=== PATIENT | male | born 1930 | race Caucasian/White ===

== ENCOUNTER 2019-06-22 04:58 | Inpatient (IN) ==
[2019-06-22] MEDS ORDERED: NS 1,000 ML IV ONE ×2 (05:06→06:18)
--- NOTE | 2019-06-22 05:10 | PROVIDER DOCUMENTATION ---
HPI-Neurological Disorder - General Stated Complaint: AMS Time Seen by Provider: 06/22/19 05:01 Source: EMS Unable to obtain history due to:: altered Allergies/Adverse Reactions: Patient Allergies Allergy/AdvReac Type Severity Reaction Status Date / Time No Known Allergies Allergy Verified 10/23/15 20:11 Home Medications: Home Medication List Medication Instructions Recorded Confirmed Last Taken Type Clonidine [Catapres] 0.1 mg PO HS PRN #30 tablet 10/24/15 12/30/15 Unknown Rx Losartan/Hydrochlorothiazide 1 each PO DAILY 12/30/15 12/30/15 12/29/15 History [Losartan-Hctz 100-25 mg Tab] - History of Present Illness-Neuro Nature of Presenting Problem: EMS reports patient last seen normal at 0200, found unconscious unresponsive on the floor of his room at 0400, smelling of vomit. There is an abrasion/hematoma right forehead. EMS report normal d-stick and vitals en route. EMS noted a right facial droop en route. Onset/Duration: reports: 1-3 hours ago (last seen normal 3 hours [employer]) Context: reports: found unresponsive by family, head injury, impaired speech, facial droop Approximate time patient was last seen normal?: 02:00 Character of Altered Mental Status: reports: decreased responsiveness Any recent trauma/injury?: reports: to head (fresh hematoma/abrasion right frontal region) Character of Deficits: reports: new weakness (generalized), impaired speech, decreased ability to stand, decreased ability to walk New weakness or altered sensation location:: reports: right facial Cognitive Baseline: alert, oriented x3 Gait Baseline: walks without assistance Associated Symptoms: reports: trouble walking, vomiting Similar Symptoms Previously?: No Recently seen or treated by another doctor?: No Review of Systems - Adult - REVIEW OF SYSTEMS - ADULT ROS:: unobtainable per condition Constitutional: reports: no symptoms reported Neurological: reports: see HPI All Other Systems: Reviewed and Negative Past History - Adult - PAST MEDICAL HISTORY-ADULT Review of Records: reports: Old Records Reviewed, Nursing Assessment Review, Medications Reviewed, Social history reviewed & non-contributory. Major Childhood Illnesses: reports: denies history Cardiovascular: reports: HTN Respiratory: reports: denies history Gastrointestinal: reports: denies history Obstetrical/Gynecological: reports: denies history Genitourinary: reports: denies history Musculoskeletal: reports: denies history Neurological: reports: denies history Endocrine/Immune: reports: denies history Other Conditions: reports: denies history - PRIOR SURGERIES/PROCEDURES Surgical/Procedure History: reports: reviewed, not pertinent - IMMUNIZATION STATUS Childhood Immunizations: UTD Flu Vaccine: NUTD - FAMILY HISTORY Family History: reviewed, not pertinent - SOCIAL HISTORY Smoking: quit greater than 1 year Substance Use: none/never Alcohol Use Frequency: never Living Situation: family Physical Exam- Neurological - Physical Exam-Neuro Initial Vital Signs Reviewed: Yes General Appearance: mild distress, lethargic, slow to respond Eye Exam: bilateral eye: normal inspection, PERRL, EOMI HENMT: normocephalic/atraumatic, moist mucous membranes, dental decay, other (right facial droop, breath smells like vomit. No pooling of secretions) Head Injury: contusions (right frontal), swelling, tenderness Neck: non-tender, full range of motion, supple, normal inspection Respiratory: no pleuratic chest pain, no respiratory distress, no accessory muscle use, rhonchi Cardiovascular: normal peripheral pulses, regular rate, rhythm, no edema, no gallop, no JVD, no murmur Abdominal Exam: normal bowel sounds, non tender, soft Lymphatic: no adenopathy Peripheral Pulses: radial (R): 2+, radial (L): 2+, dorsalis-pedis (R): 2+, dorsalis-pedis (L): 2+ Extremity: non-tender, no pedal edema, no calf tenderness, normal capillary refill. negative: normal range of motion, normal gait booky Exam: PERRL, abnormal speech (moans incomprehensably), facial asymmetry, facial droop (right), facial weakness Coordination/Gait: abnormal gait (not tested), ABN nose to finger (R), ABN nose to finger (L). negative: normal finger to nose, normal gait Motor/Sensory: no sensory deficit, negative Babinski's sign, weak motor strength RUE, weak motor strength RLE, other (weaker right upper than right lower extremity) Neurologic: facial droop, focal weakness, motor weakness Integumentary: normal color, normal turgor, warm/dry Psych/Mental Status: disoriented x 3, disheveled - Glascow Coma Scale Best Eye Response: (4) open spontaneously Best Verbal Response: (2) incomprehsible sounds Best Motor Response: (4) withdraws to pain Total Glascow Score: 10 Progress - PLAN OF CARE/RESULTS Progress/Plan/Lab Results: Vital Signs - 8 hr 06/22/19 04:49 Temperature 97.3 F L Pulse Rate 84 Respiratory Rate 20 Blood Pressure 152/089 O2 Sat by Pulse Oximetry 97 Laboratory Results - last 24 hr 06/22/19 05:16 Specimen Type ARTERIAL Sample Site L RADIAL pH 7.43 pCO2 32 L pO2 61 HCO3 23.0 Base Excess -2.2 Oxyhemoglobin 91.4 L ABG O2 Sat (Calculated) 19.1 ABG O2 Saturation 94.5 L ABG Carboxyhemoglobin 1.80 ABG Methemoglobin 1.5 Leroy Test YES A-a O2 Difference 49.0 Total Hemoglobin 14.9 Lactate 2.60 H Blood Gas Modality ROOM AIR FiO2 % 21.0 Orders Category Date Time Status Cardiac Monitoring DIRECTED Care 06/22/19 05:04 Active Finger Stick Blood Sugar (ED) DIRECTED Care 06/22/19 05:04 Active Bull Cath Insertion ORDERED Care 06/22/19 05:07 Active Oxygen Therapy- ED Nursing DIRECTED Care 06/22/19 05:04 Active CHEST-PORTABLE [RAD] Stat Exams 06/22/19 05:[address] HEAD/C-SPINE W/O CONTRAST [CT] Stat Exams 06/22/19 05:05 Taken ABG [RESP] Routine Lab 06/22/19 05:16 Completed CBC WITH ELECTRONIC DIFF [HEME] Stat Lab 06/22/19 05:04 Ordered COMPREHENSIVE METABOLIC PANEL [CHEM] Stat Lab 06/22/19 06:09 Ordered PRO B-NATRIURETIC PEPTIDE Stat Lab 06/22/19 06:09 Ordered PROTIME WITH INR [COAG] Stat Lab 06/22/19 06:09 Ordered PTT [COAG] Stat Lab 06/22/19 06:09 Ordered TROPONIN T Stat Lab 06/22/19 05:04 Ordered URINALYSIS W/POSS RFLX CULT [URINALYSIS] Stat Lab 06/22/19 06:09 Ordered URINE DRUG SCREEN PL Stat Lab 06/22/19 06:09 Ordered 0.9% Sodium Chloride Inj [Ns] 1,000 ml Med 06/22/19 05:06 Discontinued IV 999 mls/hr Aspirin Med 06/22/19 05:54 Discontinued 300 mg VT NOW ONE Aspirin Med 06/22/19 05:55 Discontinued 300 mg VT NOW ONE EKG [EKG] Stat Ther 06/22/19 05:04 Ordered - REASSESSMENT Reassessment #1 Time Reassessed: 06:08 Status: unchanged (Patient lethargic, but rousable.) Reassessment #2 Time Reassessed: 06:14 Status: unchanged (Family at bedside, informed of stroke MDs decision not to be aggressive d/t abnormal CT. Aware of grim prognosis without intervention. Only givne IVF bolus and ASA. Labs currently pending.) - CT/MRI 1 CT Study: Head Impression: Abnormal (Per REAL RAD, ACUTE ISCHEMIC EVENT INVOLVING ENTIRE LEFT MCA) 2 MRI Study: C-Spine Impression: Abnormal (Chronic changes including widening of C6-C7) - CONSULTS/PCP/HOSPITALIST Notification #1 *Consult/PCP/Hospitalist*: STROKE TEAM at paged at [phone] Time Discussed: 06:07 (Dr. Pang, STROKE MD) Reason/Comments: NO INTERVENTION, no need to transfer, with CT scan this abnormal Consult Disposition: other #2 Consult: Dr. 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 Attestation - Physician/ IBETH Attestation Patient care was provided by Advanced Practice Provider:: No The physician spent face to face time with patient:: Yes Advanced Practice Provider documentation review:: Supervising physician onsite and consulted in the evaluation and care of this patient. The physician did have a face to face encounter with the patient. - NIH Stroke Scale NIH Type: Initial Evaluation Level of Consciousness: 1-Drowsy, but arousable with minimal stimulation LOC Questions (ask month and age): 2-Both Incorrect LOC Commands (ask to open & close eyes;make a fist, let go): 2-Both Incorrect Best Gaze (horizontal eye movement): 0-Normal Visual (use finger movement, counting or visual threat): 0-No Visual Loss Facial Palsy (show teeth or raise eyebrows & close eyes tght: 2-Partial Paralysis Motor Function-left arm: 0-Normal Motor Function-right arm: 3-No Effort Against Laotto Motor Function-left le-Some Effort Against Laotto Motor Function-right le-No Effort Against Laotto Limb Ataxia([id number], or heel to vo): 0-No Ataxia Sensory(pin prick to face,arms,trunk,legs-compare side/side): 0-No Ataxia Best Language(name item/read sentence.Ex-Down to Earth): 2-Severe Aphasia Dysarthria(Pt read words or say words Ex.Mama,Tip-Top,Thanks: 2-Near Unintelligible Extinction and Inattention: 0-Normal NIH Total Score: 19 Modified Will Score Criteria: 5-severe disability Stroke tPA Guidelines - Inclusion Criteria for IV tPA 18 years old or older: Yes Ischemic stroke with measurable deficit: Yes Onset <3 hours ago *OR* 3-4.5 hours ago: Yes - Exclusion Criteria for IV tPA Evidence of intracranial hemorrhage on CT: No Presentation suggest SAH: No CT reveals defined area of hypodensity: No Evidence of AVM, neoplasm, aneurysm: No Seizure at stroke onset: No Active internal bleeding or acute trauma: No Platelet Count Less Than 100,000: No Heparin Within Last 48 HRS (PTT >Lab normal limits): No INR > 1.7 (warfarin use): No Use IIB/IIIA inhibitors within 24 hours: No Serious Head Trauma Within Last 3 Months: No Arterial Puncture Within Last 7 Days: No Lumbar Puncture Within Last 7 Days: No Repeated systolic Blood Pressure >185 or Diastolic >110: No - Additional Exclusion Criteria for IV tPA Currently on Coumadin: No Patient older than 80: Yes Prior stroke and diabetes: No Baseline NIHSS score > 25: No - Relative Contraindications to IV tPA CT reveals extensive area of infarct (>1/3 MCA territory): Yes Minor or rapidly improving stroke symptoms: No Major Surgery or Serious Trauma In Previous 14 Days: No AMI within 3 months: No Gastrointestinal or Urinary Tract hemorrhage in Past 21 Days: No Post - AMI pericarditis: No Blood Glucose Less Than 50 mg/dl or Greater Than 400 mg/dl: No - Consultation tPA risks/benefits explained to:: family Candidate for:: NOT A CANDIDATE (head trauma evidenced today. Abnormal CT. Per Dr. Pang, Stroke MD at )
[2019-06-22 05:39] LABS: BE -2.2 mmoll (-3.0-3.0); BLOOD TYPE ARTERIAL; METHB 1.5 % (0.0-1.5); O2(CT) 19.1 mL/dL (15.0-23.0); O2HB 91.4 % (95.0-99.0); PCO2(98.6) 32 mmHg (35-45); PO2(98.6) 61 mmHg (60-100); SAMPLE BLOOD; SAO2 94.5 % (95.0-100.0); THB 14.9 g/dL (11.5-17.4); pH(98.6) 7.43 (7.35-7.45)
[2019-06-22 05:41] LABS: ALLEN TEST YES; MODALITY ROOM AIR
[2019-06-22] MEDS ORDERED: ASPIRIN PR ONE ×2 (05:54→05:55)
[2019-06-22 06:17] LABS: URINE SOURCE CATH
[2019-06-22] MEDS ORDERED: ZOFRAN IV PRN (06:17)
[2019-06-22 06:19] LABS: BASO# 0.03 X1000 (0.0-0.2); BASO% 0.2 % (0.0-0.8); EOS# 0.02 X1000 (0.0-0.7); EOS% 0.1 % (0.0-10.0); HEMATOCRIT 41.8 % (42.0-52.0); HEMOGLOBIN 13.5 g/dL (14.0-18.0); IMM GRAN# 0.03 X1000 (0.0-0.04); IMM GRAN% 0.2 % (0.0-0.5); LYMPH# 1.65 X1000 (1.2-3.4); LYMPH% 10.5 % (20.5-51.1); MCHC 32.3 g/dL (33-37); MCV 92.9 FL (81-99); MONO# 0.92 X1000 (0.11-0.59); MONO% 5.9 % (1.7-9.3); MPV 11.2 FL (7.4-10.4); NEUT# 13.05 X1000 (1.4-6.5); NEUT% 83.1 % (42.2-75.2); PLT 181 X1000 (130-400); RDW 13.7 % (11.5-14.5)
[2019-06-22 06:23] LABS: BILIRUBIN URINE NEGATIVE (NEGATIVE); BLOOD URINE TRACE (NEGATIVE); COLOR YELLOW; GLUCOSE URINE NEGATIVE (NEGATIVE); KETONE URINE TRACE mg/dL (NEGATIVE); LEUKOCYTES URINE NEGATIVE (NEGATIVE); NITRITE URINE NEGATIVE (NEGATIVE); PH URINE 5.5; PROTEIN URINE 30 mg/dL (NEGATIVE); SP GRAVITY URINE 1.029; TURBIDITY URINE CLEAR (CLEAR); UROBILINOGEN URINE NORMAL (NORMAL)
[2019-06-22 06:24] LABS: UR EPITHELIAL CELLS <10 /HPF (<10); URINE BACTERIA NEGATIVE /HPF; URINE RBC <10 /HPF (<10); URINE WBC <10 /HPF (<10)
--- NOTE | 2019-06-22 06:27 | ED EKG INTERP ---
EKG Interpretation - EKG Time of EKG reading by physician:: 06:26 EKG Read and Signed by:: Jaleel Adames EKG Interpretation (*Must complete 3 of following elements*): Abnormal Rate: 79 Rhythm: NSR [place]: left QRS: PVC's, other (first degree av block) [place] Interval: prolonged ST Wave: non-specific ST changes Attestation - Physician/ IBETH Attestation Patient care was provided by Advanced Practice Provider:: No The physician spent face to face time with patient:: Yes Advanced Practice Provider documentation review:: Supervising physician onsite and consulted in the evaluation and care of this patient. The physician did have a face to face encounter with the patient.
[2019-06-22 06:35] LABS: UR AMPHETAMINES QUAL NONE DETECTED (NONE DETECT); UR BARBITUATES QUAL NONE DETECTED (NONE DETECT); UR BENZODIAZEPIN QUAL NONE DETECTED (NONE DETECT); UR CANNABINOIDS QUAL NONE DETECTED (NONE DETECT); UR COCAINE QUAL NONE DETECTED (NONE DETECT); UR METHADONE QUAL NONE DETECTED (NONE DETECT); UR METHAMPHETAMINE QUAL NONE DETECTED (NONE DETECT); UR OPIATES QUAL NONE DETECTED (NONE DETECT); UR OXYCODONE QUAL NONE DETECTED (NONE DETECT); UR PCP QUAL NONE DETECTED (NONE DETECT); UR PROPOXYPHENE QUAL NONE DETECTED (NONE DETECT); UR TCA QUAL NONE DETECTED (NONE DETECT)
[2019-06-22 06:42] LABS: ALBUMIN 4.3 g/dL (3.5-5.0); CALCIUM 9.9 mg/dL (8.8-10.2); CREATININE 1.5 mg/dL (0.7-1.2); POTASSIUM 4.3 mmol/L (3.5-5.1); TOTAL BILIRUBIN 0.5 mg/dL (0.20-1.00); TOTAL PROTEIN 7.1 g/dL (6.3-8.3)
[2019-06-22 07:29] LABS: INR 0.97; PROTIME 13.4 Seconds (11.0-16.0)
--- NOTE | 2019-06-22 07:51 | Diag Imaging Result Doc PS360 ---
EXAM: CHEST-PORTABLE INDICATION: ams, aspiration? TECHNIQUE: One view COMPARISON: 12/30/2015 FINDINGS: Inspiration is suboptimal. There is evidence of prior granulomatous disease, stable. The lungs are grossly clear. There is no discrete pleural fluid collection or pneumothorax. The cardiomediastinal silhouette and central vasculature are grossly unremarkable. IMPRESSION: Low lung volumes but no definite acute pathology by plain radiograph, otherwise. Electronically signed by Anuj Bueno 06/22/2019 7:48 AM
--- NOTE | 2019-06-22 09:07 | EKG Report ---
Test Performed on : 06/22/2019 05:48:43 AM Test Reason : STROKE Blood Pressure : / mmHG Vent. Rate : 079 BPM Atrial Rate : 079 BPM P-R Int : 238 ms QRS Dur : 108 ms QT Int : 398 ms P-R-T Axes : 027 -15 031 degrees QTc Int : 456 ms Sinus rhythm. with 1st degree AV block. with occasional premature ventricular complexes. Otherwise normal ECG When compared with ECG of 30-DEC-2015 06:24, premature ventricular complexes. are now present IA interval has increased ST no longer elevated in Inferior leads ST no longer elevated in Lateral leads Unconfirmed Result
--- NOTE | 2019-06-22 09:31 | Diag Imaging Result Doc PS360 ---
EXAM: CT HEAD/C-SPINE W/O CONTRAST INDICATION: stroke/fall TECHNIQUE: This exam was performed using automated exposure control, adjustment of mA or kV according to patient size, and/or use of iterative reconstruction technique. COMPARISON: None. FINDINGS: Head: The left MCA is mildly hyperdense there is subtle loss of olvera-white differentiation and mild sulcal effacement involving a large portion of the left MCA distribution including the left frontal lobe and left parietal lobe consistent with an a very recent acute infarct. There is also suggestion of mild periventricular white matter microangiopathy. There is no midline shift and no hydrocephalus. There is no discrete intracranial mass or intracranial hemorrhage. There is extensive paranasal sinus mucosal disease, most significant at the right frontal and right maxillary sinuses where there is hyperostosis indicating chronicity. Surrounding soft tissues are essentially unremarkable. Calvaria is intact. C-spine: There is multilevel degenerative disc disease and facet arthropathy with loss of disc space height and marginal osteophyte formation. There are bulky flowing ventral marginal osteophytes throughout the cervical spine suggesting diffuse idiopathic skeletal hypertrophy (DISH). There is widening of the C6-7 vertebral disc space anteriorly that is likely due to remote trauma. There is mild bony central canal narrowing and varying degrees of moderate foraminal narrowing related to the degenerative change. Otherwise, there there is severe atherosclerotic calcification at the left carotid bulb and milder calcification at the right carotid bulb. Surrounding soft tissues are essentially unremarkable, otherwise. The surrounding soft tissues are essentially unremarkable. IMPRESSION: 1.Large acute left MCA distribution infarct as detailed above. No evidence of acute traumatic injury involving the head. 2.Extensive chronic appearing changes as detailed above but no evidence of acute fracture or other definite acute C-spine injury. Electronically signed by Anuj Bueno 06/22/2019 9:29 AM
[2019-06-22] MEDS ORDERED: ZOSYN 3.375 GM in NS 50 ML IV SCH (09:45)
[2019-06-22] MEDS ORDERED: VANCOMYCIN IV PER PHARMACY MISC SCH (10:03)
[2019-06-22] MEDS: LABETALOL IV PRN (10:49)
[2019-06-22] MEDS: ZOSYN 3.375 GM in NS 50 ML IV SCH ×3 (10:49→22:19)
[2019-06-22] MEDS ORDERED: VANCOMYCIN 2,000 MG in NS 500 ML IV ONE (11:00)
--- NOTE | 2019-06-22 11:43 | HISTORY AND PHYSICAL ---
PRIMARY CARE PHYSICIAN: Is listed as none. CHIEF COMPLAINT: Was found on the floor around 4 a.m. this morning unresponsive by his son. The patient had vomited and a hematoma and abrasion to his right forehead. HISTORY OF PRESENTING ILLNESS: This is an 88-year-old male, who presents to [facility] ER via EMS after he was found unconscious and unresponsive on the floor in his bedroom around 4 a.m. this morning, had vomiting, and was noted to have an abrasion hematoma to his right forehead. Last seen normal around 2 a.m. this morning. He is noted to have a facial droop on the right in route per EMS. He is aphasic. Responds minimally to verbal stimuli. Can squeeze my hand with his left hand but is flaccid on the right. Per ER documentation, CT of the head showed an acute ischemic event involving the entire left MCA. Stroke team at [facility] was paged around 5:50 a.m., spoke with Dr. Smith who had a recommendation of no intervention, no need to transfer, with CT scan this abnormal, so he is being admitted to the intensive care unit at [facility]. Spoke with family about code status and at this time they wish for him to be a full code, and he will be admitted for further evaluation and treatment. PAST MEDICAL HISTORY: Hypertension, chronic kidney disease. PAST SURGICAL HISTORY: Appendectomy and a cholecystectomy. FAMILY HISTORY: Reviewed and noncontributory. SOCIAL HISTORY: He is a former smoker. Denies tobacco, alcohol, or illicit drug use. He currently lives with family. ALLERGIES: He has no known drug allergies. HOME MEDICATIONS: A current list will need to be obtained, reconciled, reviewed, and restarted as appropriate when appropriate, but he is noted to be n.p.o. at this time, but placed an order for nursing to update and confirm home medications. LABORATORY DATA: Showed a white blood cell count of 15.70, hemoglobin 13.5, hematocrit 41.8, platelets 181. PT and INR of 13.4 and 0.97. ABG with a pH of 7.43, pCO2 of 32, pO2 61, bicarbonate 23.0, and this was on room air. Sodium 137, potassium 4.3, chloride 102, CO2 22, BUN of 24, creatinine 1.5 which appears to be around his baseline, in 2016 he was at 1.4. Glucose 196. Troponin was negative at 0.010. ProBNP of 222. Urinalysis was negative. Urine drug screen showed none detected. Chest x-ray showed low lung volumes but no definite acute pathology by plain radiograph otherwise. EKG showed normal sinus rhythm with some PVCs and a first-degree AV block at 79. Per our [facility] read the CT of the head as an acute ischemic event involving the entire left MCA. MRI showed chronic changes including widening of the C6 and C7. REVIEW OF SYSTEMS: Unable to obtain from patient due to being aphasic and unable to participate in exam. PHYSICAL EXAMINATION: VITAL SIGNS: On arrival, he had a temperature of 97.3, pulse 84, respirations 20, blood pressure 152/89, saturating 97% on room air. We did place him some O2. He is saturating 95% at this time. GENERAL: This is an 88-year-old male, who is lying in the bed, unable to answer questions appropriately, does open his left eye to verbal stimuli. HEEMNT: The patient is noted to have an abrasion and hematoma above his right eyebrow. He has a right-sided facial droop. Oropharynx and nares are clear. Eyes: He can spontaneously open his left eye and gazes to the left, would not open his right eye independently. Pupils are equal, round, and reactive to light and accommodation. Extraocular movements are intact. NECK: Normal inspection. Normal range of motion. LUNGS: With rhonchi throughout lung [place], equal lung expansion and chest wall movement noted. HEART: Regular rate and rhythm. No murmurs, rubs, or gallops. ABDOMEN: Soft, nontender, nondistended. Bowel sounds are present x4 quadrants. MUSCULOSKELETAL: Unable to assess strength at this time as he is unable to participate. NEUROLOGICAL: He has a right-sided facial droop. Opens only his left eye and will gaze to the left. Was able to squeeze my hand with his left hand, none with his right. Is aphasic and unable to complete any of the other neurological exam at this time. ASSESSMENT: 1. Acute ischemic cerebrovascular accident. 2. Leukocytosis. 3. Possible aspiration pneumonia. 4. Hypertension, history of. 5. Chronic kidney disease, history of. PLAN: He was admitted to the intensive care unit at [facility], [facility], held n.p.o. Neurologic checks q.3 hours. Telemetry. Oxygen per protocol. Will place him on Zosyn 3.375 g IV q.6, vancomycin per Pharmacy protocol. Will check an echocardiogram and a carotid Doppler. Do a portable chest x-ray in the a.m. Will need to update and confirm home medications and recheck a CBC and BMP in the a.m. Will give him aspirin 300 mg per rectum daily. I did speak with the patient's daughter, who was at the bedside, about code status and at this time she and her 2 brothers have discussed this and want him to remain a full code at this time. Further orders after seen by attending. Dictated by DEBI Hatfield for Toby Butler MD cc: DEBI Hatfield MD Lloyd James, MD
[2019-06-22] MEDS ORDERED: TYLENOL PR PRN (11:48)
[2019-06-22] MEDS ORDERED: TYLENOL LIQUID PO PRN (11:52)
[2019-06-22] MEDS ORDERED: QUELICIN IV ONE (12:08)
[2019-06-22] MEDS ORDERED: AMIDATE IV ONE (12:08)
[2019-06-22] MEDS: VASOTEC IV SCH ×2 (12:28→23:12)
[2019-06-22] MEDS ORDERED: QUELICIN (DOSE) ONE (12:30)
[2019-06-22] MEDS ORDERED: AMIDATE ONE (12:30)
[2019-06-22] MEDS: DIPRIVAN 1% 1,000 MG/100 ML BOTTLE IV SCH ×4 (12:31→22:18)
[2019-06-22] MEDS ORDERED: ZEMURON ONE (12:34)
--- NOTE | 2019-06-22 12:49 | Diag Imaging Result Doc PS360 ---
EXAM: CHEST-1 VIEW INDICATION: ETT placement TECHNIQUE: One view COMPARISON: 06/22/2019 FINDINGS: The newly placed ET tube projects over the trachea and above the portillo at about the C4 level. There is also a newly placed NG tube that projects below the diaphragm and is assumed to be in the lumen of the stomach in the expected position. The lungs are overexposed due to focus on the NG tube. However, the chest appears to be essentially stable. IMPRESSION: Interval placement of ET tube and NG tube as described. Electronically signed by Anuj Bueno 06/22/2019 12:47 PM
[2019-06-22 13:44] LABS: ALLEN TEST YES; BE -2.3 mmoll (-3.0-3.0); BLOOD TYPE ARTERIAL; HCO3-(ACT) 23.1 mmoll (20.0-26.0); METHB 1.2 % (0.0-1.5); O2(CT) 20.3 mL/dL (15.0-23.0); O2HB 97.1 % (95.0-99.0); PCO2(98.6) 33 mmHg (35-45); PO2(98.6) 200 mmHg (60-100); SAMPLE BLOOD; SAO2 99.6 % (95.0-100.0); SRATE 12 BPM; THB 14.6 g/dL (11.5-17.4); TVOL 550 mL; pH(98.6) 7.42 (7.35-7.45)
[2019-06-22 13:48] LABS: MODALITY VENTILATOR
[2019-06-22] MEDS: PROTONIX IV SCH (14:32)
[2019-06-22] MEDS: DUONEB (A & A) INH SCH ×3 (15:35→23:35)
[2019-06-22] MEDS: NS 1,000 ML IV SCH ×2 (16:35→23:13)
--- NOTE | 2019-06-22 18:33 | ECHO REPORT ---
ORDER DATE: 06/22/2019 INDICATION: CVA. This is an extremely difficult study. Parasternal images are essentially unreadable. Measurements are also unreliable, given the poor 2-dimensional imaging in this patient. Valvular evaluation is also quite difficult. FINDINGS: 1. Right heart structures are difficult to visualize, but overall there appears to be normal RV systolic function. There is mild tricuspid regurgitation. The RV systolic pressure is difficult to measure, given the limitations. 2. Poor visualization of the pulmonic valve. 3. Probable normal left atrial size. 4. No mitral valve prolapse. Trace mitral regurgitation. 5. Probable normal LV size with normal LV systolic function. Estimated EF is on the order of 60% with no obvious wall motion abnormalities. 6. The aortic valve appears to open reasonably well. It does not appear to be sclerotic. Difficult Doppler evaluation of valve does not suggest any significant degree of stenosis. There does appear to be mild insufficiency. 7. The aorta is difficult to measure. No obvious abnormalities are identified 8.No pericardial effusion identified. cc: MD Umm Smith CRNP Lloyd James, MD
--- NOTE | 2019-06-22 21:32 | HISTORY AND PHYSICAL ---
ADDENDUM: This is an 88-year-old male with history of hypertension and dyslipidemia. He was found unconscious, unresponsive this morning at 4 a.m. He had passed out. Per he was in his normal state of health last night. He came in, hemiparetic, could not move his right side, minimally responsive. He was seen by CT scan, confirming a large left MCA stroke and he was admitted. When I saw him he had audible gurgling. He was developing hypoxia. He developed a fever of 102 degrees. He is still only minimally responsive. Flaccid paralysis in the right upper and lower extremity. He could move his left upper extremity. In concern over airway protection, we went ahead and had the patient intubated. He is now on propofol and ventilator. We will consult Pulmonary for management. Continue Lipitor and aspirin, and broad-spectrum antibiotics for most likely aspiration-type pneumonia. Prognosis is guarded. We will continue to follow. Plan to repeat his head CT on Monday just to see about vasogenic edema, and we will get a Neurology consult. MRI when stable. Carotid and echocardiogram was pursued. This is a 35-minute critical care note for patient with acute ischemic stroke, encephalopathy, no airway protection. We will continue treatment and follow closely. cc: MD Michael Huber MD
[2019-06-22] MEDS ORDERED: D5 NS 1,000 ML IV SCH (23:15)
[2019-06-23] MEDS: DIPRIVAN 1% 1,000 MG/100 ML BOTTLE IV SCH ×4 (00:33→09:03)
--- NOTE | 2019-06-23 02:41 | PULMONOLOGY CONSULTATION ---
DATE: 06/22/2019 REASON FOR CONSULTATION: Respiratory failure. HISTORY OF PRESENT ILLNESS: Mr. Thomas is an 88-year-old white male who was fully functional and could perform all of his activities of daily living yesterday. This morning he was found unresponsive in his room with evidence of emesis and an abrasion on the forehead. A facial droop was noted. The patient was brought to the emergency room and he would open his eyes spontaneously and withdraw to pain, but speech was incomprehensible. He had a [place] score of 10. CT scan of the head was performed which revealed a large left MCA distribution infarction. The case was discussed with the [facility] in [place] and due to the time and the radiographic findings, it was recommended he stay at this facility. The patient was not protecting his airways. He had audible rhonchi. He was developing fevers. He was intubated and initiated on mechanical ventilation. PAST MEDICAL HISTORY: 1. Hypertension. 2. Chronic kidney disease. 3. Status post cholecystectomy. 4. History of appendectomy. SOCIAL HISTORY: Remote history of tobacco use but none for at least 50 years. No alcohol use. REVIEW OF SYSTEMS: Limited but family reports he was doing well yesterday. CLINICAL EXAMINATION: Vital Signs: BP 146/82, heart rate 101, respiratory rate 12, oxygen saturation 99%. HEENT: Pupils are equal and reactive. Oropharynx appears clear. Neck: Supple. Chest: Reveals rhonchi bilaterally. Cardiac: S1-S2. Abdomen: Soft. Extremities: Without edema. LABORATORIES: Chest x-ray reveals endotracheal tube in good position. He has calcified hilar lymph nodes. He has mild gastric distention with a nasogastric tube in place. IMPRESSION: An 88-year-old with: 1. 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 He is not moving his right upper or right lower extremity. 2. Acute hypoxemic respiratory failure. 3. Fevers. DISCUSSION: An 88-year-old with problems outlined above. With the size and rapid progression of radiographic findings, his prognosis is poor. Strokes in general do not lead to altered mental status, but the size of his stroke is significant. I spoke frankly with his family. He is unlikely to ever walk again. It is likely he will not be able to chew and swallow without aspiration. He is at risk for significant cardiac events over the next several weeks to months. His prognosis is guarded to poor. PLAN: 1. Continue full ventilatory support. 2. Routine gastric acid suppression. 3. DVT prophylaxis. 4. Broad-spectrum antibiotics. 5. Prognosis is guarded. It is not clear he will survive this hospital admission. End of life discussions are in progress with the family. TIME: Spent in critical care management, 1 hour. cc: MD Michael Al MD
[2019-06-23] MEDS: DUONEB (A & A) INH SCH ×6 (03:38→23:38)
[2019-06-23] MEDS: ZOSYN 3.375 GM in NS 50 ML IV SCH ×4 (03:54→21:57)
[2019-06-23 05:13] LABS: ALLEN TEST YES; BE -4.8 mmoll (-3.0-3.0); BLOOD TYPE ARTERIAL; HCO3-(ACT) 21.2 mmoll (20.0-26.0); METHB 0.9 % (0.0-1.5); MODALITY VENTILATOR; O2(CT) 19.5 mL/dL (15.0-23.0); O2HB 96.3 % (95.0-99.0); PCO2(98.6) 38 mmHg (35-45); PO2(98.6) 106 mmHg (60-100); SAMPLE BLOOD; SAO2 98.8 % (95.0-100.0); SRATE 12 BPM; THB 14.3 g/dL (11.5-17.4); TVOL 650 mL; pH(98.6) 7.34 (7.35-7.45)
[2019-06-23] MEDS: LOVENOX SUBQ SCH (05:13)
[2019-06-23 06:33] LABS: BASO# 0.03 X1000 (0.0-0.2); BASO% 0.3 % (0.0-0.8); EOS# 0.15 X1000 (0.0-0.7); EOS% 1.6 % (0.0-10.0); HEMATOCRIT 36.5 % (42.0-52.0); IMM GRAN# 0.02 X1000 (0.0-0.04); IMM GRAN% 0.2 % (0.0-0.5); LYMPH# 1.92 X1000 (1.2-3.4); LYMPH% 19.9 % (20.5-51.1); MCH 31.1 PG (27-31); MCHC 32.9 g/dL (33-37); MCV 94.6 FL (81-99); MONO# 0.72 X1000 (0.11-0.59); MONO% 7.4 % (1.7-9.3); MPV 11.8 FL (7.4-10.4); NEUT# 6.83 X1000 (1.4-6.5); NEUT% 70.6 % (42.2-75.2); PLT 137 X1000 (130-400); RBC 3.86 XMIL (4.7-6.1); WBC 9.67 X1000 (4.8-10.8)
[2019-06-23 06:56] LABS: ALB/GLOB RATIO 1.3; CALCIUM 8.2 mg/dL (8.8-10.2); CREATININE 1.5 mg/dL (0.7-1.2); POTASSIUM 3.5 mmol/L (3.5-5.1); TOTAL BILIRUBIN 0.46 mg/dL (0.20-1.00); TOTAL PROTEIN 5.3 g/dL (6.3-8.3)
[2019-06-23 07:36] LABS: MAGNESIUM 1.9 mg/dL (1.5-2.7); PHOSPHORUS 2.4 mg/dL (2.7-4.5)
--- NOTE | 2019-06-23 07:54 | Diag Imaging Result Doc PS360 ---
EXAM: CHEST-PORTABLE INDICATION: respiratory failure TECHNIQUE: One view COMPARISON: 06/22/2019 FINDINGS: Support tubes and lines are in stable positions. There has been placement of a temperature probe. Central vasculature appears mildly increased on this study suggesting possible mild pulmonary venous congestion. No other new consolidation is identified. Cardiac silhouette is stable. IMPRESSION: Suggestion of mild pulmonary venous congestion. Stable chest, otherwise. Electronically signed by Anuj Bueno 06/23/2019 7:52 AM
[2019-06-23] MEDS: NS 1,000 ML IV SCH ×3 (08:02→18:17)
[2019-06-23] MEDS: ASPIRIN NG SCH (08:03)
[2019-06-23] MEDS: LIPITOR PO SCH (08:03)
[2019-06-23] MEDS ORDERED: SODIUM PHOSPHATE 40 MEQ in NS 250 ML IV ONE (08:39)
[2019-06-23] MEDS ORDERED: ASPIRIN PR SCH (09:00)
[2019-06-23] MEDS ORDERED: LASIX IV ONE ×2 (12:00→20:00)
[2019-06-23] MEDS: OFIRMEV 1000 MG/ISOTONIC SOLN 1,000 MG/100 ML BOTTLE IV PRN ×2 (12:03→18:17)
--- NOTE | 2019-06-23 12:28 | PROGRESS NOTE ---
DATE: 06/23/2019 SUBJECTIVE: The patient is still under sedation. OBJECTIVE: Vital Signs: Blood pressure is 186/85, heart rate of 85, respiratory rate of 12, temperature 100.6 degrees. Cardiovascular: Regular rate and rhythm. Pulmonary: Bilateral breath sounds. Clear to auscultation. GI: Soft, nontender, nondistended. Bowel sounds are positive. Extremities: No clubbing or cyanosis. Lymphatics: No peripheral edema. Neurological: Nonfocal. LABORATORY DATA: White count 9, hemoglobin and hematocrit 12 and 36, platelets 137,000. PH 7.34, pCO2 of 38, PaO2 of 106. Creatinine is still 1.5. Phosphorus is 2.4, albumin is 3. PROBLEM LIST: 1. Large left middle cerebral artery stroke, acute, with hemiparesis, encephalopathy, probably some degree of dysphagia. In any case, we are continuing treatment. Will get aspirin. I will get a Neurology consult. He is on a statin. We are allowing permissive hypertension. Echocardiogram and carotid are pending. We will get an MRI and MRA when he is off the ventilator. I have ordered a repeat head CT tomorrow just to kind of see if there has been any progression, and a Neurology consult. 2. Presumed aspiration-type pneumonia. He is still very febrile. This certainly could be related to his aspiration or sinus or possibly central. We will continue to get those down. We cannot give him nonsteroidal anti-inflammatory drugs because of his renal insufficiency. We will continue to monitor. 3. Chronic renal insufficiency. It is unclear. I do not have baseline data on his kidney function. He has been 1.4 before, so this is probably his baseline. 4. Uncontrolled hypertension, likely related to recent stroke. We will get Neurology guidance about starting back his medications, and follow closely. Hold any strong anticoagulation for the time being. 5. Hypophosphatemia. We will supplement and follow. cc: MD Michael Huber MD
[2019-06-23] MEDS: PROTONIX IV SCH (13:17)
[2019-06-23 15:29] LABS: UR CREAT RANDOM 5.9 mg/dL (14-26); UR PROT RANDOM < 4.0 mg/dL; UR SODIUM 128 mmoll
--- NOTE | 2019-06-23 18:20 | PULMONOLOGY PROGRESS NOTE ---
DATE: 06/23/2019 SUBJECTIVE: The patient will raise his eyebrows to voice and painful stimuli. He is spontaneously breathing on his own. OBJECTIVE: Vital Signs: Maximum temperature in the last 24 hours 102.0 degrees blood pressure 173/116, heart rate 93, respiratory rate 16, oxygen saturation 99%. HEENT: Pupils are equal. Oropharynx appears clear. Neck: Is supple. Chest: Reveals coarse rhonchi bilaterally. Cardiac exam: S1-S2. Abdomen: Is obese and soft. Extremities: Reveal trace edema. LABORATORIES: Chest x-ray reveals mild pulmonary edema. Arterial blood gas reveals a pH 7.34, pCO2 of 38, pO2 of 106. Sodium 141, potassium 3.5, chloride 109, bicarbonate 20, BUN 20, creatinine 1.5, phosphorus 2.4. White blood count 9.67, hemoglobin 12.0, platelet count 137,000. Preliminary sputum culture has sparse growth of normal renetta. IMPRESSION: An 88-year-old with 1. Acute hypoxemic respiratory failure. 2. 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 3. Fevers. PLAN: 1. Continue full ventilatory support. 2. Continue gastric acid suppression. 3. DVT and DVT prophylaxis. 4. Neurology consultation anticipated with a followup CT scan planned per Dr. Adam Butler. TIME SPENT IN CRITICAL CARE MANAGEMENT: 30+ minutes. cc: MD Michael Al MD
--- NOTE | 2019-06-23 18:42 | Diag Imaging Result Doc PS360 ---
EXAM: US RENAL 2 (RETROPER) COMPLETE INDICATION: prateek/arf TECHNIQUE: COMPARISON: None. FINDINGS: The kidneys appear grossly normal in echotexture with no discrete renal mass or hydronephrosis. The right kidney measures 11.3 cm and the left kidney measures 12.4 cm in the greatest longitudinal axes. Right renal cortex measures 0.8 cm and the left renal cortex measures 0.8 cm in thickness. There is a Bull catheter in the urinary bladder and the bladder is completely nondistended. IMPRESSION: Unremarkable renal ultrasound. Electronically signed by Anuj Bueno 06/23/2019 6:39 PM
[2019-06-23] MEDS: VANCOMYCIN 1,400 MG in NS 250 ML IV SCH (23:24)
[2019-06-24] MEDS: OFIRMEV 1000 MG/ISOTONIC SOLN 1,000 MG/100 ML BOTTLE IV PRN ×4 (00:30→17:53)
[2019-06-24] MEDS: DUONEB (A & A) INH SCH ×6 (03:26→23:31)
[2019-06-24 04:49] LABS: ALLEN TEST YES; BE 0.8 mmoll (-3.0-3.0); BLOOD TYPE ARTERIAL; HCO3-(ACT) 25.5 mmoll (20.0-26.0); MODALITY VENTILATOR; O2(CT) 20.5 mL/dL (15.0-23.0); O2HB 95.2 % (95.0-99.0); PCO2(98.6) 35 mmHg (35-45); PO2(98.6) 79 mmHg (60-100); SAMPLE BLOOD; SAO2 97.8 % (95.0-100.0); THB 15.3 g/dL (11.5-17.4); pH(98.6) 7.45 (7.35-7.45)
[2019-06-24] MEDS: LOVENOX SUBQ SCH (05:14)
[2019-06-24] MEDS: ZOSYN 3.375 GM in NS 50 ML IV SCH ×4 (05:14→22:09)
[2019-06-24] MEDS: LABETALOL IV PRN (05:15)
[2019-06-24 06:48] LABS: BASO# 0.02 X1000 (0.0-0.2); BASO% 0.1 % (0.0-0.8); EOS# 0.03 X1000 (0.0-0.7); EOS% 0.2 % (0.0-10.0); HEMATOCRIT 42.1 % (42.0-52.0); HEMOGLOBIN 13.9 g/dL (14.0-18.0); IMM GRAN# 0.03 X1000 (0.0-0.04); IMM GRAN% 0.2 % (0.0-0.5); LYMPH# 1.93 X1000 (1.2-3.4); LYMPH% 14.1 % (20.5-51.1); MCH 30.6 PG (27-31); MCV 92.7 FL (81-99); MONO% 7.3 % (1.7-9.3); MPV 11.8 FL (7.4-10.4); NEUT# 10.63 X1000 (1.4-6.5); NEUT% 78.1 % (42.2-75.2); PLT 157 X1000 (130-400); RBC 4.54 XMIL (4.7-6.1); RDW 13.9 % (11.5-14.5); WBC 13.64 X1000 (4.8-10.8)
[2019-06-24 07:16] LABS: ALB/GLOB RATIO 1.2; ALBUMIN 3.8 g/dL (3.5-5.0); CALCIUM 8.5 mg/dL (8.8-10.2); CREATININE 1.6 mg/dL (0.7-1.2); POTASSIUM 3.3 mmol/L (3.5-5.1); TOTAL BILIRUBIN 0.97 mg/dL (0.20-1.00); TOTAL PROTEIN 6.9 g/dL (6.3-8.3)
--- NOTE | 2019-06-24 07:26 | Diag Imaging Result Doc PS360 ---
EXAM: CHEST-PORTABLE 06/24/2019 HISTORY: respiratory failure TECHNIQUE: AP portable at 0541 COMMENT: There is an endotracheal tube with its tip slightly below the thoracic inlet. There is an NG tube which passes below the diaphragm. There has been some improvement in the basilar opacities present on 06/23/2019. IMPRESSION: Improved basilar atelectasis versus pneumonia. Electronically signed by Francisco Zheng 06/24/2019 7:23 AM
[2019-06-24] MEDS: ASPIRIN NG SCH (08:27)
[2019-06-24] MEDS: NS 1,000 ML IV SCH (08:27)
[2019-06-24] MEDS: LIPITOR PO SCH (08:27)
--- NOTE | 2019-06-24 09:27 | Diag Imaging Result Doc PS360 ---
CT HEAD W/O CONTRAST - 06/24/2019 INDICATION: encephalopathy COMPARISON: 06/22/2019 FINDINGS: There is a complete left middle cerebral artery territory infarction. There is now significant mass effect with midline shift to the right, by 8.5 mm. No hemorrhage. No herniation. There is significant bilateral maxillary sinusitis. No skull fracture. IMPRESSION: Complete left middle cerebral artery territory infarction involving as expected, with significant mass effect and some midline shift to the right. This exam was performed using automated exposure control, adjustment of mA or kV according to patient size, and/or use of iterative reconstruction technique Electronically signed by Luis Carlos Goodwin 06/24/2019 9:24 AM
[2019-06-24] MEDS: SODIUM CHLORIDE 0.9% INJ SCH (13:45)
[2019-06-24] MEDS: PROTONIX IV SCH (13:45)
[2019-06-24] MEDS ORDERED: MANNITOL IV ONE (15:04)
--- NOTE | 2019-06-24 15:16 | CONSULTATION ---
DATE OF CONSULTATION: 06/24/2019 HISTORY OF PRESENT ILLNESS: Mr. Thomas is 88 years old. He was reportedly found down at home, brought to the hospital, noted to have right facial drooping and right-sided weakness. Initial CT showed evidence of early infarction in the left hemisphere. Follow-up CT today shows evidence of evolution of extensive acute cerebral infarction involving the entire left MCA territory. He has required intubation. He has had some responsiveness, moving left limbs and right leg, opening eyes, but no clear communication beyond that. The admission record does not show any prior neurologic history, not clear evidence of baseline cognitive impairment or prior stroke. He has been afebrile, except for one temperature of 102 degrees recorded about 48 hours ago. Blood sugars are moderately elevated. Urine drug screen was all negative. Carotid ultrasound has been done with report pending. On exam, Mr. Thomas is supine and not moving spontaneously. With moderate stimulation, he opened his eyes, grimaced, moved his left arm vigorously, showed some withdrawal of each leg, more vigorous with the left. Plantar response is extensor bilaterally, more briskly on the right. He has left gaze preference with passive eye opening, but full lateral eye movement with passive head turning. He did not blink with visual threat approaching from the right or the left. He did not seem to regard me, fix his gaze on me or communicate. He did not follow commands to hold up fingers or protrude his tongue. He did consistently move his left arm vigorously when stimulated by loudly calling to him. IMPRESSION: Large ischemic dominant left hemisphere infarction with right hemiparesis, likely right hemianopia, likely global dysphasia. I do not have any urgent suggestion. I did not find any family now. I will check with family if and when available to see if there is history of baseline cognitive impairment, prior neurologic event or other history that might influence prognosis and, therefore, management here. I do not think he is a candidate for aggressive intervention in light of the large area of infarction documented on imaging. Further plans will depend on his clinical course. Thanks for asking Neurology to see Mr. Thomas. cc: MD Michael Morillo III, MD MTDD
--- NOTE | 2019-06-24 15:27 | PROGRESS NOTE ---
DATE: 06/24/2019 SUBJECTIVE: Patient has no major complaints. OBJECTIVE: Vital Signs: Blood pressure 176/86, heart rate of 94, respiratory rate of 25, temperature was 100.8 degrees. Cardiovascular: Regular rate and rhythm. Pulmonary: Bilateral breath sounds. Clear to auscultation. GI: Soft, nontender, nondistended. Neurologic: He is not really moving his right side spontaneously. He does move his left side spontaneously. LABORATORY DATA: White count 13, hemoglobin and hematocrit 13 and 42, platelets 157. Potassium 3.3, creatinine 1.6. PROBLEM LIST: 1. Large left middle cerebral artery stroke, acute with significant hemiparesis and encephalopathy. Consulted Dr. Schneider for evaluation or Neurology. Will continue aspirin and permissive hypertension. His most recent head CT shows significant swelling. I think I may go ahead and give him a dose of mannitol, see if we can get that, and increase his rate on his ventilator to participate in hyperventilation. 1. Aspiration-type pneumonia. We will continue antibiotics and follow closely. Unclear if this is truly aspiration-type pneumonia. 2. Chronic renal failure; he is stage IIIA. We will continue to monitor. DISPOSITION: Pending clinical status. PROGNOSIS: Still guarded. cc: MD Michael Huber MD
[2019-06-24] MEDS ORDERED: MANNITOL 20% 500 ML IV ONE (15:30)
[2019-06-25] MEDS: DUONEB (A & A) INH SCH ×6 (03:27→23:14)
[2019-06-25] MEDS: NS 1,000 ML IV SCH ×2 (03:34→13:44)
[2019-06-25] MEDS: LABETALOL IV PRN (03:37)
[2019-06-25] MEDS: ZOSYN 3.375 GM in NS 50 ML IV SCH ×4 (03:50→22:36)
[2019-06-25 05:06] LABS: ALLEN TEST YES; BE 0.6 mmoll (-3.0-3.0); BLOOD TYPE ARTERIAL; HCO3-(ACT) 25.3 mmoll (20.0-26.0); METHB 0.9 % (0.0-1.5); MODALITY VENTILATOR; O2(CT) 24.8 mL/dL (15.0-23.0); O2HB 94.5 % (95.0-99.0); PCO2(98.6) 37 mmHg (35-45); PO2(98.6) 77 mmHg (60-100); SAMPLE BLOOD; SAO2 97.1 % (95.0-100.0); THB 18.7 g/dL (11.5-17.4); pH(98.6) 7.43 (7.35-7.45)
[2019-06-25] MEDS: OFIRMEV 1000 MG/ISOTONIC SOLN 1,000 MG/100 ML BOTTLE IV PRN ×3 (05:09→17:48)
[2019-06-25] MEDS: LOVENOX SUBQ SCH (05:09)
[2019-06-25 06:16] LABS: ALB/GLOB RATIO 1.1; ALBUMIN 3.6 g/dL (3.5-5.0); CALCIUM 8.7 mg/dL (8.8-10.2); CREATININE 1.3 mg/dL (0.7-1.2); POTASSIUM 3.4 mmol/L (3.5-5.1); TOTAL BILIRUBIN 0.7 mg/dL (0.20-1.00); TOTAL PROTEIN 6.8 g/dL (6.3-8.3)
--- NOTE | 2019-06-25 07:09 | Diag Imaging Result Doc PS360 ---
CHEST-PORTABLE - 06/25/2019 INDICATION: respiratory failure COMPARISON: 06/24/2019 FINDINGS: Support tubes are stable and in good position. Lung volumes are severely low. There is worsening mild infiltrate or atelectasis at the lateral left lower lobe. Heart size is normal. IMPRESSION: Slight worsening atelectasis or infiltrate in the lateral left lung base. Electronically signed by Luis Carlos Goodwin 06/25/2019 7:07 AM
[2019-06-25] MEDS: LIPITOR PO SCH (08:02)
[2019-06-25] MEDS: ASPIRIN NG SCH (08:02)
--- NOTE | 2019-06-25 11:11 | PULMONOLOGY PROGRESS NOTE ---
DATE: 06/24/2019 SUBJECTIVE: The patient responds to pain. He does have a spontaneous breathing effort. OBJECTIVE: Vital Signs: BP 175/87, heart rate 94 and respiratory rate 17 on a spontaneous breathing trial. HEENT: Pupils have a left lateral gaze. Pupils are reactive. Oropharynx appears clear. Neck: Supple. Lungs: Chest reveals bibasilar infiltrates with some improvement compared to yesterday. LABORATORY: White blood count 13.6, hemoglobin 13.9, and platelet count 157,000. Arterial blood gas reveals pH 7.45, pCO2 of 35, PO2 of 79. CT scan of the brain reveals large left middle cerebral artery infarction with mass effect and midline shift. Microbiology: Sputum culture preliminary reveals sparse growth. IMPRESSION: An 88-year-old with: 1. Acute hypoxemic respiratory failure. 2. Large left middle cerebral artery stroke. 3. Encephalopathy/altered mental status. 4. Fevers. PLAN: 1. Continue ventilatory support. We will placed on a spontaneous breathing trial. The primary limiting factor to extubation is his mental status. 2. Continue broad-spectrum antibiotics. 3. Continue gastric acid suppression. 4. Continue DVT prophylaxis. 5. The patient will require feeding soon unless family elects to withdraw care. Time spent in critical care management: 3+ minutes cc: MD Michael Al MD MTDD
[2019-06-25] MEDS: VANCOMYCIN 1,400 MG in NS 250 ML IV SCH ×2 (11:19→11:41)
[2019-06-25] MEDS: PROTONIX IV SCH (13:44)
[2019-06-25] MEDS: SODIUM CHLORIDE 0.9% INJ SCH (13:44)
--- NOTE | 2019-06-25 15:15 | PROGRESS NOTE ---
DATE: 06/25/2019 SUBJECTIVE: Mr. Thomas has not shown significant change clinically. He continues intubated and mechanically ventilated. I had a lengthy discussion with daughter at the bedside. We discussed typical time frame for maximum cerebral edema following large stroke. We discussed very poor prognosis for recovery of language function and purposeful use of the right limbs. Likely, he also will have significant right visual field loss. We discussed possibility that he will survive with major impairment. She will use this information to make decisions regarding management. I would favor conservative management with comfort care, no heroic measures and no aggressive management. Depending on his clinical course, we can reconsider neurology management as the cerebral edema subsides. cc: MD Michael Morillo III, MD MTDD
[2019-06-25] MEDS ORDERED: MANNITOL 20% 500 ML IV ONE (16:30)
[2019-06-25] MEDS ORDERED: MANNITOL IV ONE (16:30)
[2019-06-25] MEDS: POTASSIUM CHLORIDE 20 MEQ/SWI 20 MEQ/100 ML IVPB IV SCH ×2 (17:24→19:55)
[2019-06-26] MEDS: DUONEB (A & A) INH SCH ×6 (03:18→23:18)
[2019-06-26] MEDS: ZOSYN 3.375 GM in NS 50 ML IV SCH ×4 (03:59→22:14)
[2019-06-26] MEDS: NS 1,000 ML IV SCH ×2 (04:03→16:41)
[2019-06-26] MEDS: LOVENOX SUBQ SCH (05:19)
[2019-06-26 05:30] LABS: ALLEN TEST YES; BE 0.9 mmoll (-3.0-3.0); BLOOD TYPE ARTERIAL; HCO3-(ACT) 25.6 mmoll (20.0-26.0); METHB 0.6 % (0.0-1.5); O2(CT) 17.3 mL/dL (15.0-23.0); O2HB 97.6 % (95.0-99.0); PCO2(98.6) 31 mmHg (35-45); PO2(98.6) 139 mmHg (60-100); SAMPLE BLOOD; SAO2 99.4 % (95.0-100.0); THB 12.4 g/dL (11.5-17.4); pH(98.6) 7.49 (7.35-7.45)
[2019-06-26 05:31] LABS: MODALITY VENTILATOR
[2019-06-26 06:29] LABS: BASO# 0.04 X1000 (0.0-0.2); BASO% 0.5 % (0.0-0.8); EOS# 0.15 X1000 (0.0-0.7); EOS% 1.7 % (0.0-10.0); HEMATOCRIT 37.2 % (42.0-52.0); HEMOGLOBIN 11.8 g/dL (14.0-18.0); IMM GRAN# 0.05 X1000 (0.0-0.04); IMM GRAN% 0.6 % (0.0-0.5); LYMPH# 1.49 X1000 (1.2-3.4); LYMPH% 17.3 % (20.5-51.1); MCH 31.1 PG (27-31); MCHC 31.7 g/dL (33-37); MCV 98.2 FL (81-99); MONO% 8.1 % (1.7-9.3); MPV 10.7 FL (7.4-10.4); NEUT# 6.16 X1000 (1.4-6.5); NEUT% 71.8 % (42.2-75.2); PLT 179 X1000 (130-400); RBC 3.79 XMIL (4.7-6.1); WBC 8.59 X1000 (4.8-10.8)
[2019-06-26 06:49] LABS: ALB/GLOB RATIO 1.5; ALBUMIN 3.4 g/dL (3.5-5.0); CALCIUM 8.6 mg/dL (8.8-10.2); CREATININE 1.2 mg/dL (0.7-1.2); POTASSIUM 3.8 mmol/L (3.5-5.1); TOTAL BILIRUBIN 0.5 mg/dL (0.20-1.00); TOTAL PROTEIN 5.7 g/dL (6.3-8.3)
[2019-06-26 06:50] LABS: PHOSPHORUS 1.9 mg/dL (2.7-4.5)
--- NOTE | 2019-06-26 07:45 | Diag Imaging Result Doc PS360 ---
CHEST-PORTABLE - 06/26/2019 INDICATION: respiratory failure COMPARISON: 06/25/2019 FINDINGS: Stable endotracheal tube and nasogastric tube in good position. Stable faint atelectasis or infiltrate in the lateral left lung base. No new infiltrates. Heart size remains normal. IMPRESSION: No change from prior. Electronically signed by Luis Carlos Goodwin 06/26/2019 7:43 AM
[2019-06-26] MEDS: LIPITOR PO SCH (08:14)
[2019-06-26] MEDS: ASPIRIN NG SCH (08:14)
--- NOTE | 2019-06-26 09:30 | PROGRESS NOTE ---
DATE: 06/26/2019 SUBJECTIVE: The patient continues to be sedated and intubated. As per nursing staff, he was following some basic commands like moving his fingers. No other issues noted. OBJECTIVE: Vital Signs: Temperature 100.4 degrees, heart rate 61, respiratory rate 17, blood pressure 194/81, O2 saturation 97% on mechanical ventilator. General: This is an 88-year-old male, lying in bed in no acute distress, sedated and intubated. Cardiovascular: S1, S2 heard. No murmurs, gallops, or rubs. Regular rate and rhythm. Respiratory: Minimal coarse breath sounds noted in both pulmonary bases anteriorly. The patient is not using any accessory muscles or having work of breathing. Abdomen: Soft, a little bit distended, but nontender to palpation. Bowel sounds present. No organomegaly. Extremities: No clubbing, cyanosis, or edema. Peripheral pulses present in both legs. Neurological: Noted right- sided hemiparesis. He does move the left side spontaneously. LABORATORY DATA: White cell count 8.59, hemoglobin 11.9, hematocrit 37.2, platelets 179,000. ABG shows pH 7.49, with pCO2 of 31, PO2 of 139, patient on ventilator, FiO2 of 30%. ASSESSMENT AND PLAN: This is a chronically ill-appearing, 88-year-old, man with: 1. Large left middle cerebral artery stroke, acute right hemiparesis, and encephalopathy. Dr. Schneider from Neurology has been consulted. He continues to be not responsive, although there was a report that he was able to squeeze fingers. Dr. Schneider talked with the daughter at bedside, and they already know that the prognosis for him is very poor, and also they are aware that if the patient survives, there will be memory impairment noted. At this point, will continue to monitor this patient closely. 2. Aspiration pneumonia. White cell count is back to normal. The patient continues to spike fever. He is on vancomycin, day #4, and Zosyn, day #4 as well. Will continue with the same management. 3. Chronic kidney disease stage II. Actually, renal function is normal today. 4. Disposition. Will continue to monitor this patient closely. cc: MD Michael Perkins MD MTDD
--- NOTE | 2019-06-26 11:47 | PROGRESS NOTE ---
DATE: 06/26/2019 LOCATION: ICU #8. SUBJECTIVE: No major clinical changes reported over last 24 hours. Mr. Thomas continues intubated, mechanically ventilated, sedated. OBJECTIVE: Mr. Thomas shows slight withdrawal of the right arm with noxious stimulation today, which seems a little bit improved. He continues to withdraw the right leg more briskly, and to move the left limbs briskly. He appeared to use his left arm semi-purposefully. He has left gaze preference, but full lateral eye movement with head turning. He did not communicate with me. IMPRESSION: Large dominant left hemisphere infarction, right hemiplegia, likely right hemianopia, global dysphasia. It appears that he will survive the stroke, but prognosis for substantial recovery remains poor. No new suggestions from our standpoint today. Thank you for asking Neurology to see Mr. Thomas. cc: MD Michael Morillo III, MD MTDD
[2019-06-26] MEDS: SODIUM CHLORIDE 0.9% INJ SCH (13:47)
[2019-06-26] MEDS: PROTONIX IV SCH (13:47)
--- NOTE | 2019-06-26 16:40 | PROGRESS NOTE ---
DATE: 06/25/2019 SUBJECTIVE: Patient is still intubated, minimally responsive or at least not purposefully responsive. He does move his left side without difficulty. OBJECTIVE: Vital Signs: Blood pressure is 184/101, heart rate 73, respiratory rate 18, temperature 100.6 degrees. Cardiovascular: Regular rate and rhythm. Pulmonary: Bilateral breath sounds. Clear to auscultation. GI: Soft, nontender, nondistended. Bowel sounds were positive. LABORATORY DATA: We did not have a CBC on the . PH 7.43, pCO2 37, PaO2 77. Potassium is 3.4, creatinine 1.3. PROBLEM LIST: 1. Acute large territory left middle cerebral artery stroke with significant hemiparesis, encephalopathy, and dysphagia. Dr. Schneider has been consulted and has provided prognostic information to the family. We are on aspirin, permissive hypertension. I think at some point we will need to start adding blood pressure medications. I am going to go ahead and re-dose him with mannitol. I would consider doing that for the next several days at the discretion of our service and Dr. Schneider just because he has significant cerebral edema and continue supportive measures. 2. Aspiration-type pneumonia. He is on antibiotics and he has persistent fevers. I am not sure if this is related to aspiration versus possible central causes. He is currently on vancomycin and Zosyn. 3. Chronic renal failure. He is stage 3. Seems to be better. Will monitor while he is on the diuretic. 4. Disposition. Prognosis is guarded. Family is discussing about goals of care. We will continue to follow closely. cc: MD Michael Huber MD
[2019-06-27] MEDS: VANCOMYCIN 1,400 MG in NS 250 ML IV SCH (00:40)
[2019-06-27] MEDS: DUONEB (A & A) INH SCH ×6 (03:29→23:30)
[2019-06-27 05:13] LABS: ALLEN TEST YES; BE 0.9 mmoll (-3.0-3.0); BLOOD TYPE ARTERIAL; HCO3-(ACT) 25.5 mmoll (20.0-26.0); METHB 0.8 % (0.0-1.5); O2(CT) 18.6 mL/dL (15.0-23.0); O2HB 93.6 % (95.0-99.0); PCO2(98.6) 34 mmHg (35-45); PO2(98.6) 67 mmHg (60-100); SAMPLE BLOOD; SAO2 96.2 % (95.0-100.0); THB 14.1 g/dL (11.5-17.4); pH(98.6) 7.46 (7.35-7.45)
[2019-06-27 05:14] LABS: MODALITY VENTILATOR
[2019-06-27] MEDS: ZOSYN 3.375 GM in NS 50 ML IV SCH ×4 (06:16→23:08)
[2019-06-27] MEDS: LOVENOX SUBQ SCH (06:16)
[2019-06-27] MEDS: NS 1,000 ML IV SCH ×2 (06:20→23:08)
[2019-06-27 06:38] LABS: AGAP 11; ALB/GLOB RATIO 1.1; ALBUMIN 3.1 g/dL (3.5-5.0); ALKALINE PHOSPHATASE 62 U/L (32-122); BUN 25 mg/dL (8-22); CALCIUM 8.4 mg/dL (8.8-10.2); CHLORIDE 109 mmol/L (98-107); COSMO 287; CREATININE 1.1 mg/dL (0.7-1.2); ESTIMATED GFR > 60; GLUCOSE 120 mg/dL (70-104); GOT 33 U/L (10-34); GPT 22 U/L (10-44); PHOSPHORUS 2.2 mg/dL (2.7-4.5); POTASSIUM 3.7 mmol/L (3.5-5.1); SODIUM 141 mmol/L (136-145); TCO2 21 mmol/L (25-35); TOTAL BILIRUBIN 0.38 mg/dL (0.20-1.00); TOTAL PROTEIN 5.8 g/dL (6.3-8.3)
--- NOTE | 2019-06-27 07:18 | Diag Imaging Result Doc PS360 ---
EXAM: CHEST-PORTABLE HISTORY: respiratory failure TECHNIQUE: Single view COMPARISON: 06/26/2019 FINDINGS: Endotracheal tube in good position. Nasogastric tube overlies the esophagus and stomach. The lungs are well expanded. Worsening infiltrates in the left base with a tiny effusion. Heart is mildly prominent. IMPRESSION: Mild interval worsening. Electronically signed by Lon Longoria 06/27/2019 7:15 AM
[2019-06-27] MEDS ORDERED: SODIUM PHOSPHATE 35 MMOL in NS 250 ML IV ONE (08:13)
[2019-06-27] MEDS: ASPIRIN NG SCH (08:45)
[2019-06-27] MEDS: LIPITOR PO SCH (08:45)
[2019-06-27] MEDS ORDERED: S2 RACEPINEPHRINE 2.25% INH ONE (10:16)
[2019-06-27] MEDS ORDERED: NS NEB INH SCH (10:30)
--- NOTE | 2019-06-27 10:58 | PROGRESS NOTE ---
DATE: 06/27/2019 SUBJECTIVE: Patient continues to be sedated and intubated. As per nursing staff, the patient was following very basic commands like squeezing my fingers but no other issues noted. OBJECTIVE: Vital Signs: Temperature. 99.9, heart rate 69, respiratory rate 24, blood pressure 180/76, O2 saturation 100% on mechanical ventilator at FiO2 of 30%. General: This is an 88-year- old lying in bed sedated and intubated. Neck: No JVD noted. No carotid bruits. No lymphadenopathy. No thyromegaly. Cardiovascular: S1, S2 heard. No murmurs, gallops, or rubs. Regular rate and rhythm. Respiratory: Minimal coarse breath sounds noted in both pulmonary bases anteriorly. The patient is not using accessory muscles or having work of breathing. Abdomen: A little bit distended. Apparently nontender to palpation. Bowel sounds present. No organomegaly. Extremities: No clubbing, cyanosis, or edema. Peripheral pulses present in both legs. Neurological: Right side hemiparesis noted. Does move the left side spontaneously. LABORATORY DATA: There is no BMP. ABG shows pH 7.36 with pCO2 34, PO2 67, that was setting on ventilator at CPAP mode with FiO2 30%. BMP remarkable for phosphorus 3.2. ASSESSMENT AND PLAN: 1. 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 Patient continues to be sedated and intubated. The patient was squeezing my fingers. Even though he may survive this stroke, his prognosis is very poor in terms of substantial recovery. In that regard, we will continue to monitor this patient closely in the intensive care unit. Neurology has been following this patient and informed the family about the poor prognosis. At this point, we will continue to monitor. Pulmonary is following this patient. We will see when they decide to do weaning trial and try to extubate him. I think the main issue is mental status. 2. Aspiration pneumonia. White cell count is back to normal. Patient not having had any fever the last 24 hours. Patient is on vancomycin and Zosyn day #5. We will continue with same management. 3. Chronic kidney disease stage II. Actually the renal function is completely normal. We will continue to monitor BMP. 4. Disposition. Following leads from Neurology and Pulmonary. cc: MD Michael Perkins MD
[2019-06-27] MEDS: LABETALOL IV PRN ×2 (11:04→23:08)
[2019-06-27] MEDS: VASOTEC IV SCH (13:50)
[2019-06-27] MEDS: PROTONIX IV SCH (13:50)
[2019-06-27] MEDS: SODIUM CHLORIDE 0.9% INJ SCH (13:51)
[2019-06-27] MEDS ORDERED: VANCOMYCIN 1,400 MG in NS 250 ML IV SCH (23:00)
[2019-06-28] MEDS: VASOTEC IV SCH ×2 (01:36→13:34)
[2019-06-28] MEDS: DUONEB (A & A) INH SCH ×6 (03:43→23:53)
[2019-06-28 04:46] LABS: ALLEN TEST YES; BE 0.2 mmoll (-3.0-3.0); BLOOD TYPE ARTERIAL; HCO3-(ACT) 25.1 mmoll (20.0-26.0); METHB 0.6 % (0.0-1.5); O2(CT) 15.9 mL/dL (15.0-23.0); O2HB 95.8 % (95.0-99.0); PCO2(98.6) 32 mmHg (35-45); PO2(98.6) 94 mmHg (60-100); SAMPLE BLOOD; SAO2 98.3 % (95.0-100.0); THB 11.7 g/dL (11.5-17.4); pH(98.6) 7.47 (7.35-7.45)
[2019-06-28 04:47] LABS: MODALITY VENTILATOR
[2019-06-28] MEDS: ZOSYN 3.375 GM in NS 50 ML IV SCH ×4 (06:16→22:49)
[2019-06-28] MEDS: LOVENOX SUBQ SCH (06:17)
--- NOTE | 2019-06-28 07:05 | Diag Imaging Result Doc PS360 ---
EXAM: CHEST-PORTABLE HISTORY: respiratory failure TECHNIQUE: Single view COMPARISON: 06/27/2019 FINDINGS: No change in the nasogastric tube. Endotracheal tube has been removed. Lungs remain expanded similar to the prior study. The bilateral infiltrates. These are more prominent in the mid right lung. Tiny left effusion. IMPRESSION: Mild worsening infiltrates Electronically signed by Lon Longoria 06/28/2019 7:02 AM
[2019-06-28 07:14] LABS: AGAP 15; ALBUMIN 3.2 g/dL (3.5-5.0); ALKALINE PHOSPHATASE 66 U/L (32-122); BUN 23 mg/dL (8-22); CALCIUM 8.8 mg/dL (8.8-10.2); CHLORIDE 112 mmol/L (98-107); COSMO 302; CREATININE 1.1 mg/dL (0.7-1.2); ESTIMATED GFR > 60; GLUCOSE 100 mg/dL (70-104); GOT 38 U/L (10-34); GPT 32 U/L (10-44); PHOSPHORUS 2.8 mg/dL (2.7-4.5); POTASSIUM 3.6 mmol/L (3.5-5.1); SODIUM 150 mmol/L (136-145); TCO2 23 mmol/L (25-35); TOTAL BILIRUBIN 0.65 mg/dL (0.20-1.00); TOTAL PROTEIN 6.3 g/dL (6.3-8.3)
[2019-06-28] MEDS: D5W 1,000 ML IV SCH ×2 (08:39→17:52)
[2019-06-28] MEDS: ASPIRIN NG SCH (08:40)
[2019-06-28] MEDS: LIPITOR PO SCH (08:40)
--- NOTE | 2019-06-28 08:52 | PROGRESS NOTE ---
DATE: 06/28/2019 SUBJECTIVE: The patient has been extubated yesterday. From nursing staff, there is a report that this patient had plenty of bloody secretion that we were suctioning. There are not apparently episodes of hematemesis. We have not checked CBC today. OBJECTIVE: Vital Signs: Temperature 99.3 degrees, heart rate 72, respiratory rate 24, blood pressure 191/78, O2 saturation 96% on Venturi mask 40% during examination. General: This is a chronically ill-appearing, 88-year-old, male, lying in bed, in no acute distress with Ventimask. Neck: No JVD noted. No carotid bruits. No lymphadenopathy. No thyromegaly. Cardiovascular: S1, S2 heard. No murmurs, gallops, or rubs. Regular rate and rhythm. Respiratory: Coarse breath sounds noted in both pulmonary [place]chaca. Patient is not using any accessory muscles or having work of breathing. Abdomen: A little bit distended but nontender to palpation. Bowel sounds present. No organomegaly. Extremities: No clubbing, cyanosis, or edema. Peripheral pulses present in both legs. Neurological: The patient has right-sided hemiparesis noted. Patient is in restraints. The patient does move left side spontaneously. LABORATORY DATA: CBC is pending from today. ABG shows pH 7.47 with pCO2 32, PO2 94. Sodium 150 with normal renal function. ASSESSMENT AND PLAN: 1. 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 The patient has been extubated yesterday. He is restless and agitated, not answering any questions. Neurology is following this patient. His blood pressure remain high even though we have started Vasotec 1.25 mg IV q.12 hours. At this point, we will continue to treat elevated blood pressure with p.r.n. labetalol. We will continue to monitor this patient closely. 2. Aspiration pneumonia. White cell count has not been checked in the last 2 days so we are going to do it today. No fever in the last 24 hours. We will continue with vancomycin and Zosyn, day #6 for both medications. We will continue with breathing treatments as well. 3. Nutritional status. We will continue with NG tube feedings for this patient. Mentation is okay to start nutrition by mouth. 4. Acute kidney injury, resolved. 5. Bloody secretions. I am not quite sure this patient may have had gastrointestinal bleeding or not. We will check hemoglobin and hematocrit q.6 hours and will treat him accordingly. 6. Hypernatremia. We will start D5W and insulin sliding scale as well. cc: MD Michael Perkins MD MTDD
[2019-06-28 09:13] LABS: BASO# 0.04 X1000 (0.0-0.2); BASO% 0.3 % (0.0-0.8); EOS# 0.55 X1000 (0.0-0.7); EOS% 4.6 % (0.0-10.0); HEMATOCRIT 39.8 % (42.0-52.0); HEMOGLOBIN 12.6 g/dL (14.0-18.0); IMM GRAN# 0.18 X1000 (0.0-0.04); IMM GRAN% 1.5 % (0.0-0.5); MCH 30.5 PG (27-31); MCHC 31.7 g/dL (33-37); MCV 96.4 FL (81-99); MONO# 0.81 X1000 (0.11-0.59); MONO% 6.8 % (1.7-9.3); NEUT# 8.42 X1000 (1.4-6.5); NEUT% 70.8 % (42.2-75.2); PLT 165 X1000 (130-400); RBC 4.13 XMIL (4.7-6.1); RDW 13.6 % (11.5-14.5)
[2019-06-28 09:56] LABS: LYMPHS 7 % (21-51); MONO 10 % (1-9); SEGS 79 % (42-75)
[2019-06-28 09:57] LABS: ANISOCYTOSIS 1+
[2019-06-28] MEDS: HUMALOG SUBQ SCH ×3 (11:11→22:10)
--- NOTE | 2019-06-28 12:05 | PROGRESS NOTE ---
DATE: 06/28/2019 SUBJECTIVE: No major neurologic change clinically. OBJECTIVE: Mr. Thomas appears slightly more responsive today. When I called his name, he turned his head slightly to the left. He opened his eyes partly. He did not communicate with me. He did not move limbs to command. He did move his left arm purposefully, as before. Plantar response is briskly extensor bilaterally. Neck is supple. He has full lateral eye movement with passive head turning. 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 I do not have any new thoughts or new suggestions from Neurology standpoint. I discussed prognosis frankly with family Monday. Thanks for asking Neurology to see Mr. Thomas. cc: MD Michael Morillo III, MD MTDD
[2019-06-28] MEDS: SODIUM CHLORIDE 0.9% INJ SCH (13:34)
[2019-06-28] MEDS: PROTONIX IV SCH (13:34)
[2019-06-28 14:21] LABS: HEMATOCRIT 35.4 % (42.0-52.0); HEMOGLOBIN 11.5 g/dL (14.0-18.0)
[2019-06-28 19:59] LABS: HEMATOCRIT 35.4 % (42.0-52.0); HEMOGLOBIN 11.5 g/dL (14.0-18.0)
[2019-06-28] MEDS: LABETALOL IV PRN (22:49)
[2019-06-28] MEDS: VANCOMYCIN 1,800 MG in NS 500 ML IV SCH (22:49)
[2019-06-29] MEDS: D5W 1,000 ML IV SCH ×4 (00:59→21:06)
[2019-06-29] MEDS: VASOTEC IV SCH ×2 (00:59→13:12)
[2019-06-29 05:35] LABS: ALLEN TEST YES; BE 1.3 mmoll (-3.0-3.0); BLOOD TYPE ARTERIAL; HCO3-(ACT) 25.9 mmoll (20.0-26.0); METHB 1.2 % (0.0-1.5); O2(CT) 15.1 mL/dL (15.0-23.0); O2HB 95.5 % (95.0-99.0); PCO2(98.6) 35 mmHg (35-45); PO2(98.6) 87 mmHg (60-100); SAMPLE BLOOD; THB 11.2 g/dL (11.5-17.4); pH(98.6) 7.46 (7.35-7.45)
[2019-06-29 05:37] LABS: MODALITY COOL AEROSOL
[2019-06-29] MEDS: ZOSYN 3.375 GM in NS 50 ML IV SCH ×4 (06:09→21:44)
[2019-06-29] MEDS: LOVENOX SUBQ SCH (06:09)
[2019-06-29] MEDS: LABETALOL IV PRN (06:09)
[2019-06-29] MEDS: DUONEB (A & A) INH SCH ×6 (06:09→23:36)
[2019-06-29] MEDS: HUMALOG SUBQ SCH ×4 (06:09→21:05)
[2019-06-29 06:33] LABS: BASO# 0.03 X1000 (0.0-0.2); BASO% 0.3 % (0.0-0.8); EOS% 2.5 % (0.0-10.0); HEMATOCRIT 36.3 % (42.0-52.0); HEMOGLOBIN 11.6 g/dL (14.0-18.0); IMM GRAN# 0.22 X1000 (0.0-0.04); IMM GRAN% 1.9 % (0.0-0.5); LYMPH# 1.47 X1000 (1.2-3.4); LYMPH% 12.4 % (20.5-51.1); MCH 30.3 PG (27-31); MCV 94.8 FL (81-99); MONO# 0.94 X1000 (0.11-0.59); MONO% 7.9 % (1.7-9.3); MPV 11.1 FL (7.4-10.4); NEUT# 8.87 X1000 (1.4-6.5); PLT 229 X1000 (130-400); RBC 3.83 XMIL (4.7-6.1); RDW 13.4 % (11.5-14.5); WBC 11.83 X1000 (4.8-10.8)
[2019-06-29 07:15] LABS: AGAP 15; ALB/GLOB RATIO 0.9; ALBUMIN 2.8 g/dL (3.5-5.0); ALKALINE PHOSPHATASE 82 U/L (32-122); BUN 20 mg/dL (8-22); CALCIUM 8.4 mg/dL (8.8-10.2); CHLORIDE 106 mmol/L (98-107); COSMO 289; CREATININE 1.1 mg/dL (0.7-1.2); ESTIMATED GFR > 60; GLUCOSE 155 mg/dL (70-104); GOT 51 U/L (10-34); GPT 60 U/L (10-44); POTASSIUM 3.1 mmol/L (3.5-5.1); SODIUM 142 mmol/L (136-145); TCO2 21 mmol/L (25-35); TOTAL BILIRUBIN 0.74 mg/dL (0.20-1.00)
[2019-06-29 07:30] LABS: MAGNESIUM 1.8 mg/dL (1.5-2.7); PHOSPHORUS 2.3 mg/dL (2.7-4.5)
--- NOTE | 2019-06-29 07:57 | Diag Imaging Result Doc PS360 ---
EXAM: CHEST-PORTABLE - 06/29/2019 HISTORY: respiratory failure TECHNIQUE: Portable chest COMPARISON: 06/28/2019 FINDINGS: Nasogastric tube remains in place. There is been mild increase in infiltrate on the right. There has been apparent decrease in infiltrate/atelectasis at the left base. There is no substantial pleural effusion or pneumothorax identified. Heart size appears upper normal. IMPRESSION: Mild increase in infiltrate on the right. Decrease in infiltrate/atelectasis at left base. Electronically signed by Jose Francisco Carrillo 06/29/2019 7:55 AM
[2019-06-29] MEDS ORDERED: POTASSIUM CHLORIDE 60 MEQ in NS 500 ML IV ONE (08:15)
[2019-06-29] MEDS ORDERED: SODIUM PHOSPHATE 40 MMOL in NS 250 ML IV ONE (08:15)
[2019-06-29] MEDS: LIPITOR PO SCH (08:18)
[2019-06-29] MEDS: ASPIRIN NG SCH (08:18)
[2019-06-29] MEDS: NORVASC PO SCH ×2 (08:39→20:48)
[2019-06-29 09:18] LABS: HEMATOCRIT 37.2 % (42.0-52.0); HEMOGLOBIN 11.9 g/dL (14.0-18.0)
--- NOTE | 2019-06-29 10:45 | PROGRESS NOTE ---
DATE: 06/29/2019 SUBJECTIVE: Patient has been extubated 2 days ago. Continues to require restraints. Pretty much he has been restless. When I call his name, he turns his head slightly to the left and opens eyes partially and squeeze my fingers. OBJECTIVE: Vital Signs: Temperature 100.9 degrees, heart rate 69, respiratory 24, blood pressure 205/91, O2 saturation 99% on Venturi mask 40%. General Examination: This is a chronically ill- appearing, 88-year-old male, lying in bed in no acute distress. Cardiovascular exam: S1, S2 heard. No murmurs, gallops, or rubs. Regular rate and rhythm. Respiratory exam: Coarse breath sounds noted all over both pulmonary menchaca. Patient is not using any accessory muscles or having work of breathing. Abdomen: A little distended, but nontender to palpation. Bowel sounds present. No organomegaly. Extremities: No clubbing, cyanosis, or edema. Peripheral pulses present in both legs. Neurological exam: Patient has right-sided hemiparesis noted. Patient is on restraints. The patient follows very basic commands like squeezing fingers. The patient does move left side spontaneously. LABORATORY DATA: White cell count 11.83, hemoglobin 11.6, hematocrit 36.3, platelets 229. ABG that shows pH 7.46, pCO2 35, PO2 85. BMP remarkable for potassium 3.1 and sodium 142, phosphorus 2.3. ASSESSMENT AND PLAN: 1. 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 The patient continues to be restless and agitated. Right hemiparesis noted. Family, in this case daughter, has been explain his poor prognosis. At this point, we will continue to monitor this patient closely. 2. Uncontrolled hypertension. We have a low permissive hypertension for this patient, but he persists to have very elevated blood pressures, so we have started yesterday Vasotec 1.25 mg intravenous every 12 hours, but he continues to have elevated blood pressures. At this point, we will add amlodipine 5 mg oral twice daily through nasogastric tube. I will add hydralazine 3 mL intravenous as needed. 3. Aspiration pneumonia. His white cell count is a little bit elevated at 11.83. Patient spiked fever today. We will continue with vancomycin and Zosyn day #7 for both medications. If he continues to spike fever, will repeat blood culture, urine culture and sputum culture, and we may need to change the antibiotics. We will continue to monitor. 4. Nutritional status: We will continue with his nasogastric tube feedings. Mentation is not okay of course to start any nutrition by mouth yet. 5. Acute kidney injury, resolved. 6. Hyponatremia, now resolved. We will decrease the doses of D5W from 125 to 75, and we will continue to monitor BNP. cc: MD Michael Perkins MD
[2019-06-29] MEDS: SODIUM CHLORIDE 0.9% INJ SCH (13:12)
[2019-06-29] MEDS: PROTONIX IV SCH (13:12)
[2019-06-29 14:25] LABS: HEMATOCRIT 35.7 % (42.0-52.0); HEMOGLOBIN 11.7 g/dL (14.0-18.0)
[2019-06-29] MEDS: APRESOLINE IV PRN (18:39)
[2019-06-29] MEDS: OFIRMEV 1000 MG/ISOTONIC SOLN 1,000 MG/100 ML BOTTLE IV PRN (20:48)
[2019-06-29] MEDS ORDERED: POTASSIUM CHLORIDE 20% LIQUID NG ONE (21:15)
[2019-06-29] MEDS: VANCOMYCIN 1,800 MG in NS 500 ML IV SCH (23:32)
[2019-06-30] MEDS: VASOTEC IV SCH ×2 (01:43→14:09)
[2019-06-30] MEDS: DUONEB (A & A) INH SCH ×6 (03:12→23:35)
[2019-06-30] MEDS: ZOSYN 3.375 GM in NS 50 ML IV SCH ×2 (03:54→09:52)
[2019-06-30] MEDS: APRESOLINE IV PRN (03:54)
[2019-06-30 04:50] LABS: BASO# 0.05 X1000 (0.0-0.2); BASO% 0.4 % (0.0-0.8); EOS# 0.38 X1000 (0.0-0.7); EOS% 3.1 % (0.0-10.0); HEMATOCRIT 35.7 % (42.0-52.0); HEMOGLOBIN 11.7 g/dL (14.0-18.0); IMM GRAN# 0.22 X1000 (0.0-0.04); IMM GRAN% 1.8 % (0.0-0.5); LYMPH# 1.95 X1000 (1.2-3.4); MCH 30.6 PG (27-31); MCHC 32.8 g/dL (33-37); MCV 93.5 FL (81-99); MONO# 0.78 X1000 (0.11-0.59); MONO% 6.4 % (1.7-9.3); MPV 10.7 FL (7.4-10.4); NEUT# 8.78 X1000 (1.4-6.5); NEUT% 72.3 % (42.2-75.2); PLT 240 X1000 (130-400); RBC 3.82 XMIL (4.7-6.1); RDW 13.6 % (11.5-14.5); WBC 12.16 X1000 (4.8-10.8)
[2019-06-30] MEDS: LOVENOX SUBQ SCH (05:03)
[2019-06-30 05:07] LABS: AGAP 15; ALB/GLOB RATIO 0.8; ALBUMIN 2.6 g/dL (3.5-5.0); ALKALINE PHOSPHATASE 81 U/L (32-122); BUN 17 mg/dL (8-22); CALCIUM 8.2 mg/dL (8.8-10.2); CHLORIDE 105 mmol/L (98-107); COSMO 285; CREATININE 1.1 mg/dL (0.7-1.2); ESTIMATED GFR > 60; GLUCOSE 141 mg/dL (70-104); GOT 47 U/L (10-34); GPT 67 U/L (10-44); POTASSIUM 3.3 mmol/L (3.5-5.1); SODIUM 141 mmol/L (136-145); TCO2 21 mmol/L (25-35); TOTAL BILIRUBIN 0.64 mg/dL (0.20-1.00); TOTAL PROTEIN 5.9 g/dL (6.3-8.3)
[2019-06-30 05:09] LABS: ALLEN TEST YES; BE 1.6 mmoll (-3.0-3.0); BLOOD TYPE ARTERIAL; HCO3-(ACT) 26.1 mmoll (20.0-26.0); METHB 1.2 % (0.0-1.5); O2(CT) 17.6 mL/dL (15.0-23.0); O2HB 95.3 % (95.0-99.0); PCO2(98.6) 32 mmHg (35-45); PO2(98.6) 78 mmHg (60-100); SAMPLE BLOOD; THB 13.1 g/dL (11.5-17.4); pH(98.6) 7.49 (7.35-7.45)
[2019-06-30 05:10] LABS: MODALITY COOL AEROSOL
[2019-06-30] MEDS ORDERED: POTASSIUM CHLORIDE 20% LIQUID NG ONE (05:44)
--- NOTE | 2019-06-30 05:54 | Diag Imaging Result Doc PS360 ---
EXAM: CHEST-PORTABLE HISTORY: respiratory failure TECHNIQUE: Single view COMPARISON: 06/29/2019 FINDINGS: The lungs are well expanded. Right-sided pneumonia similar to the prior study. Heart is mildly prominent. No pleural effusions identified. Nasogastric tube overlies the esophagus and stomach. IMPRESSION: Stable chest Electronically signed by Lon Longoria 06/30/2019 5:51 AM
[2019-06-30] MEDS: HUMALOG SUBQ SCH ×4 (06:21→21:50)
[2019-06-30] MEDS: NORVASC PO SCH ×2 (08:29→20:50)
[2019-06-30] MEDS: ASPIRIN NG SCH (08:29)
[2019-06-30] MEDS: LIPITOR PO SCH (08:29)
[2019-06-30] MEDS: D5W 1,000 ML IV SCH (09:52)
--- NOTE | 2019-06-30 12:57 | PROGRESS NOTE ---
DATE: 06/30/2019 SUBJECTIVE: Patient has no major complaints but he is unresponsive or at least partially sedated. OBJECTIVE: Blood pressure 159/74, heart rate of 71, respiratory rate of 24, temperature of 99.2, 98% on 40%. Cardiovascular: Regular rate and rhythm. Pulmonary: Bilateral breath sounds clear to auscultation. GI: Soft, nontender, nondistended. Bowel sounds were positive. Laboratory Data: White count is 12, hemoglobin and hematocrit 11 and 35, platelets 240,000. PH 7.49, pCO2 of 30, PaO2 of 78. Basic was unremarkable. Albumin of 2.6. PROBLEM LIST: 1. A large middle cerebral artery distribution left-sided cerebrovascular accident with hemiplegia and significant encephalopathy and dysphagia. We will continue supportive measures. He is off the ventilator at this point. 2. Uncontrolled hypertension. At this point, I agree we need to start being more aggressive with his blood pressure. He is on Vasotec and Norvasc. Blood pressure is better at 159/74 so we will continue to follow. 3. Aspiration pneumonia, presumably. He has persistent fevers which may be due to chronic aspiration or recurrent aspiration. He is on vancomycin and Zosyn day 8. We will get an infectious disease consult and get them to re-evaluate his antibiotics. 4. Acute kidney injury. That seems to be better. 5. Hypernatremia. That is resolved with D5. He is getting tube feeds. Continue D5 for one more bag and then monitor. cc: MD Michael Huber MD
[2019-06-30] MEDS: PROTONIX IV SCH (14:10)
[2019-06-30] MEDS: SODIUM CHLORIDE 0.9% INJ SCH (14:10)
[2019-06-30] MEDS: MAXIPIME 2 GM in NS 100 ML IV SCH ×2 (14:45→21:55)
--- NOTE | 2019-06-30 15:13 | INFECTIOUS DISEASE CONSULT REP ---
DATE: 06/30/2019 CONCLUSION: Dr. Butler has asked me to see the patient because of continued fever. The fever may be due to an aspiration pneumonia in the left lower lobe, although the patient is on excellent antibiotic coverage to treat this. Possibly the fever is due to an alteration in the patient's temperature regulating area in the brain. Possibly the patient has a urinary tract infection. RECOMMENDATIONS: I have discontinued Zosyn and have placed the patient on cefepime. I agree with vancomycin. I have ordered a procalcitonin level and a urine culture. I have ordered a procalcitonin level to help discern if the patient indeed does have a pneumonia or not. DISCUSSION: The patient has had a left cerebral brain infarct. He has a left lower lobe infiltrate and has been put on vancomycin and Zosyn. The patient has continued to have fever, the last one was 101.5 and today the temperature is 99.2 degrees. The patient's sputum grew normal renetta. Blood cultures were negative. ALT was 67. Creatinine is 1.1. GFR is greater than 60. CBC shows a white count of 12,160, hemoglobin 11.7 and platelet count 240,000. Blood gases show a pH of 7.49, a PO2 of 78, and a pCO2 of 32. REVIEW OF SYSTEMS: Unable to be obtained. PREVIOUS HOSPITALIZATIONS AND OPERATIONS: The patient has had an appendectomy and a cholecystectomy. MEDICAL DISEASES: Positive for hypertension and chronic kidney disease, hyperlipidemia. FAMILY HISTORY: Is said to be noncontributory. SOCIAL HISTORY: The patient currently does not smoke cigarettes, drink alcoholic beverages or use illicit drugs. The patient lives with his family. ALLERGIES: He has no known drug allergies. HOME MEDICATIONS: Include aspirin, atorvastatin, clonidine, and metoprolol. PHYSICAL EXAMINATION: Vital Signs: Temperature earlier was 101.5 now it is 99.2, pulse 71, respirations 24, blood pressure is 159/74. General: The patient is 5 feet 9 inches tall, weighs 238 pounds. This is ill-appearing, elderly male. He is in no acute distress. Head/eyes/ears/nose/throat: The patient has a nasogastric tube in place. There is no drainage from the nose or ears. Neck: No meningismus. Lungs: Clear to auscultation. Cardiovascular: Heart rate is regular. Abdomen: Soft, nontender. Genitalia: Patient has a Bull catheter in place. Integument: No rash noted. Neurologic: The patient is very lethargic. He did not respond to verbal stimuli. There is no tremor. Thank you for the consult. cc: MD Michael Robert MD
[2019-06-30] MEDS: VANCOMYCIN 1,800 MG in NS 500 ML IV SCH (22:47)
[2019-07-01] MEDS: VASOTEC IV SCH ×2 (00:20→13:26)
[2019-07-01] MEDS: DUONEB (A & A) INH SCH ×6 (03:24→23:47)
[2019-07-01 04:37] LABS: ALLEN TEST YES; BLOOD TYPE ARTERIAL; HCO3-(ACT) 27.3 mmoll (20.0-26.0); METHB 1.6 % (0.0-1.5); O2(CT) 15.9 mL/dL (15.0-23.0); O2HB 96.4 % (95.0-99.0); PCO2(98.6) 24 mmHg (35-45); PO2(98.6) 165 mmHg (60-100); SAMPLE BLOOD; SAO2 100.4 % (95.0-100.0); THB 11.5 g/dL (11.5-17.4)
[2019-07-01 04:39] LABS: MODALITY COOL AEROSOL
[2019-07-01] MEDS: LOVENOX SUBQ SCH (05:10)
[2019-07-01 05:15] LABS: BASO# 0.03 X1000 (0.0-0.2); BASO% 0.2 % (0.0-0.8); EOS# 0.46 X1000 (0.0-0.7); EOS% 3.6 % (0.0-10.0); HEMATOCRIT 37.9 % (42.0-52.0); HEMOGLOBIN 12.3 g/dL (14.0-18.0); IMM GRAN# 0.12 X1000 (0.0-0.04); IMM GRAN% 0.9 % (0.0-0.5); LYMPH# 1.56 X1000 (1.2-3.4); LYMPH% 12.1 % (20.5-51.1); MCH 30.4 PG (27-31); MCHC 32.5 g/dL (33-37); MCV 93.6 FL (81-99); MONO# 0.71 X1000 (0.11-0.59); MONO% 5.5 % (1.7-9.3); NEUT# 10.02 X1000 (1.4-6.5); NEUT% 77.7 % (42.2-75.2); PLT 288 X1000 (130-400); RBC 4.05 XMIL (4.7-6.1); RDW 13.4 % (11.5-14.5)
[2019-07-01] MEDS: MAXIPIME 2 GM in NS 100 ML IV SCH ×3 (05:16→21:18)
[2019-07-01] MEDS: APRESOLINE IV PRN (05:20)
[2019-07-01 05:25] LABS: AGAP 12; ALB/GLOB RATIO 0.9; ALBUMIN 2.9 g/dL (3.5-5.0); ALKALINE PHOSPHATASE 84 U/L (32-122); BUN 17 mg/dL (8-22); CALCIUM 8.8 mg/dL (8.8-10.2); CHLORIDE 100 mmol/L (98-107); COSMO 275; CREATININE 0.9 mg/dL (0.7-1.2); ESTIMATED GFR > 60; GLUCOSE 126 mg/dL (70-104); GOT 50 U/L (10-34); GPT 72 U/L (10-44); POTASSIUM 3.6 mmol/L (3.5-5.1); SODIUM 136 mmol/L (136-145); TCO2 24 mmol/L (25-35); TOTAL BILIRUBIN 0.58 mg/dL (0.20-1.00); TOTAL PROTEIN 6.3 g/dL (6.3-8.3)
[2019-07-01] MEDS: HUMALOG SUBQ SCH ×4 (06:05→20:34)
--- NOTE | 2019-07-01 07:49 | Diag Imaging Result Doc PS360 ---
EXAM: CHEST-PORTABLE INDICATION: respiratory failure TECHNIQUE: One view COMPARISON: 06/30/2019 FINDINGS: The NG tube is in stable position. There are bilateral infiltrates suggesting pulmonary edema +/- pneumonia. The infiltrate throughout the right lung is stable. The infiltrate at the left lower lung zone may be slightly worse. There is suggestion of pulmonary venous congestion similar to the previous study. Cardiac silhouette is stable. IMPRESSION: Bilateral infiltrates with apparent slight worsening on the left. Electronically signed by Anuj Bueno 07/01/2019 7:47 AM
[2019-07-01] MEDS: LIPITOR PO SCH (08:29)
[2019-07-01] MEDS: ASPIRIN NG SCH (08:29)
[2019-07-01] MEDS: NORVASC PO SCH ×2 (08:29→20:02)
[2019-07-01] MEDS ORDERED: DUONEB (A & A) ONE (11:45)
[2019-07-01] MEDS: PROTONIX IV SCH (13:27)
--- NOTE | 2019-07-01 15:53 | PROGRESS NOTE ---
DATE: 07/01/2019 SUBJECTIVE: The patient is resting in bed. He is currently unresponsive. OBJECTIVE: Vital Signs: Vital signs are as follows: Temperature 97.5 degrees, pulse 79, respirations 19, blood pressure 156/74, oxygen saturation is 98%. HEENT: Patient is atraumatic, normocephalic. Has oxygen mask in place. Cardiovascular exam: S1, S2. Respiratory system: Has occasional rales/rhonchi noted. Abdomen: Soft, nontender. No masses felt. Extremities: No evidence of edema. Central nervous system: The patient is unresponsive. LABS AND X-RAYS: WBCs 12.9, hematocrit 37.9 with a platelet count of 288. ABG 7.6/24/165/100.4. Sodium is 136, potassium 3.6, chloride 100, bicarbonate 24. BUN is 17, creatinine 0.9. Chest x- ray shows bilateral infiltrates slightly worse on the left. ASSESSMENT AND PLAN: 1. Acute respiratory failure secondary to possible aspiration pneumonia. Continue current antibiotic regimen. Supplemental oxygen. 2. Acute cerebrovascular accident. The patient is currently unresponsive. Continue aspirin, as well as atorvastatin. 3. Hypertension. Allow for permissive hypertension. 4. Acute kidney injury. Improved. 5. Hypernatremia. Resolved. 6. Prognosis. Guarded. cc: Zachary Tang MD
--- NOTE | 2019-07-01 15:56 | PROGRESS NOTE ---
DATE: 07/01/2019 SUBJECTIVE: Mr. Thomas has made some improvement in level of consciousness. He has been afebrile for the last few days. Systolic blood pressures have ranged 150s to 190s in the last few days. WBC is 12,900 today. Chemistry shows mildly elevated blood sugars. Liver enzymes are up a little bit today (AST 50, ALT 72). OBJECTIVE: On exam, he is awake and alert. He fixed his gaze on me, regarded me, and followed me with his eyes from the left side of the bed to the foot of the bed. He did not follow when I was to the right of the bed. He did not speak. He did not follow simple commands. He did not mimic. He moved his right foot minimally. He moved his left limbs vigorously. He squeezed my fingers with his left hand vigorously. I did not see spontaneous movement in the right arm. He has left gaze preference, but moves his eyes to midline more consistently today than a few days ago. He has full lateral eye movement with passive head turning. 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 I do not have any urgent suggestion from Neurology standpoint. I agree with current management. Prognosis for major neurologic recovery is not good, but it looks like he will survive this event. cc: MD Zachary Morillo III, MD MTDD
--- NOTE | 2019-07-01 18:37 | INFECTIOUS DISEASE PROGRESS NO ---
DATE: 07/01/2019 HISTORY OF PRESENT ILLNESS: The patient has been having fever due to his bilateral pneumonia. He has not had any fever spike in the last 48 hours. MEDICATIONS: The patient is on his 9th day of treatment with vancomycin and the first day of treatment with cefepime. PHYSICAL EXAMINATION: Vital Signs: Temperature is 97.5 degrees, pulse 81, respirations 19, blood pressure 156/74. General: This is an ill-appearing, elderly male. He is in no acute distress. Head/eyes/ears/nose/throat: Patient has a nasogastric tube in place. There is no drainage from the nose or ears. Neck: The patient did not seem to have any pain with movement of his neck. Lungs: There were some rhonchi in the left lung and clear in the right lung. Cardiovascular: Heart rate is regular. Abdomen: Soft and nontender. Neurologic: The patient is lethargic, but he did follow some requests to move his extremities. LAB AND RADIOLOGY: Urine culture was negative thus making the urinary tract not the source of the patient's fever. The patient's sputum grew normal renetta. Blood gases showed a pH of 7.6, a pO2 of 165 and a pCO2 of 24, creatinine 0.9. GFR is greater than 60. ALT is 72. Chest x-ray shows bilateral infiltrates. ASSESSMENT AND PLAN: The patient has a pneumonia, which may be due to aspiration. infiltrates. The patient has aspiration pneumonia. The plan is to continue the current antibiotics consisting of cefepime and vancomycin. COMORBIDITIES: The patient has chronic kidney disease. cc: MD Zachary Robert MD MTDD
[2019-07-01] MEDS: LABETALOL IV PRN (21:18)
[2019-07-01] MEDS ORDERED: LASIX IV ONE (21:24)
[2019-07-01] MEDS: VANCOMYCIN 1,800 MG in NS 500 ML IV SCH (23:15)
[2019-07-02] MEDS: VASOTEC IV SCH ×2 (01:36→13:54)
[2019-07-02] MEDS: DUONEB (A & A) INH SCH ×6 (03:10→23:24)
[2019-07-02 05:13] LABS: ALLEN TEST YES; BE 5.4 mmoll (-3.0-3.0); BLOOD TYPE ARTERIAL; HCO3-(ACT) 29.1 mmoll (20.0-26.0); METHB 0.9 % (0.0-1.5); O2(CT) 16.2 mL/dL (15.0-23.0); O2HB 95.4 % (95.0-99.0); PCO2(98.6) 38 mmHg (35-45); PO2(98.6) 80 mmHg (60-100); SAMPLE BLOOD; SAO2 97.7 % (95.0-100.0); pH(98.6) 7.49 (7.35-7.45)
[2019-07-02 05:14] LABS: MODALITY COOL AEROSOL
[2019-07-02] MEDS: LOVENOX SUBQ SCH (05:17)
[2019-07-02] MEDS: MAXIPIME 2 GM in NS 100 ML IV SCH ×3 (05:18→23:15)
[2019-07-02] MEDS: HUMALOG SUBQ SCH ×4 (06:00→21:02)
[2019-07-02 07:21] LABS: ALB/GLOB RATIO 0.7; ALBUMIN 3.1 g/dL (3.5-5.0); CALCIUM 8.9 mg/dL (8.8-10.2); CREATININE 1.2 mg/dL (0.7-1.2); POTASSIUM 3.5 mmol/L (3.5-5.1); TOTAL BILIRUBIN 0.56 mg/dL (0.20-1.00); TOTAL PROTEIN 7.3 g/dL (6.3-8.3)
--- NOTE | 2019-07-02 07:37 | PULMONOLOGY PROGRESS NOTE ---
DATE: 07/01/2019 SUBJECTIVE: The patient is arousable to alert. He will intermittently engage examiner visually. He does not follow commands. He has minimal movement on the right side. OBJECTIVE: Blood pressure 187/75, heart rate 72, respiratory rate 20, and oxygen saturation 97% on 40% FiO2. HEENT: Pupils are equal and reactive. Oropharynx appears clear. Neck: Supple. Lungs: Chest reveals rhonchi bilaterally. Abdomen: Soft. Extremities: Reveal trace edema. LABORATORIES: Chest x-ray reveals bilateral infiltrates slightly worse on the left. IMPRESSION: An 88-year-old with: 1. Acute hypoxemic respiratory failure. 2. Pneumonia. 3. Large left middle cerebral artery stroke. DISCUSSION: An 88-year-old with problems outlined above. The large stroke has left him severely compromised. He has audible rhonchi with poor cough effort. He has an aspiration pneumonia. His prognosis is extremely poor given his age and size of the stroke. The patient will require tracheostomy, and a PEG tube if the family wants to pursue aggressive care. Would recommend having a palliative care consult with family and discussion allowing patient to have a natural . PLAN: 1. Continue antibiotics per Infectious Disease. 2. Continue oxygen. 3. Continue bronchial hygiene. 4. Palliative care consult. cc: MD Zachary Al MD
--- NOTE | 2019-07-02 07:58 | Diag Imaging Result Doc PS360 ---
CHEST-PORTABLE - 07/02/2019 INDICATION: NG tube placment COMPARISON: 07/01/2019 FINDINGS: There is a nasogastric tube in good position in the stomach. IMPRESSION: Nasogastric tube in good position in the stomach. Electronically signed by Luis Carlos Goodwin 07/02/2019 7:56 AM
--- NOTE | 2019-07-02 08:06 | Diag Imaging Result Doc PS360 ---
EXAM: CHEST-PORTABLE HISTORY: respiratory failure TECHNIQUE: Single view COMPARISON: 07/01/2019 FINDINGS: Nasogastric tube overlies the upper esophagus. It does not pass through the distal esophagus into the stomach. The lungs are well expanded. Mild cardiomegaly with central vascular distention remains. Pulmonary edema is less pronounced. No pleural effusions identified. IMPRESSION: 1.Decreased pulmonary edema 2.Nasogastric tube in the upper esophagus. It does not enter the stomach. This report was called and discussed with the ICU on 07/02/2019 at 8:05 AM and was readback. Electronically signed by Lon Longoria 07/02/2019 8:04 AM
--- NOTE | 2019-07-02 09:06 | Diag Imaging Result Doc PS360 ---
EXAM: CHEST-PORTABLE 07/02/2019 HISTORY: NG tube placement. TECHNIQUE: AP portable at 0853 COMMENT: There is an NG tube the tip of which appears to be in the fundus of the stomach. There is motion artifact and the chest is overexposed. There is some question of atelectasis in the left lower lobe. IMPRESSION: NG tube in the stomach. Electronically signed by Francisco Zheng 07/02/2019 9:04 AM
[2019-07-02] MEDS: ASPIRIN NG SCH (09:17)
[2019-07-02] MEDS: APRESOLINE IV PRN (09:17)
[2019-07-02] MEDS: LIPITOR PO SCH (09:17)
[2019-07-02] MEDS: NORVASC PO SCH ×2 (09:17→21:13)
[2019-07-02] MEDS: ZYVOX 600 MG/D5W 600 MG/300 ML IVPB IV SCH ×2 (09:57→21:13)
--- NOTE | 2019-07-02 10:25 | PROGRESS NOTE ---
DATE: 07/02/2019 Mr. Thomas came in, was found on the floor at 3 a.m., unresponsive, by his son. Vomited. Hematoma and abrasion on his right forehead. This was 06/22/2019. Admitted with acute ischemic cerebrovascular accident, right-sided hemiparesis, leukocytosis, possible aspiration pneumonia, hypertension, history of chronic kidney disease. PHYSICAL EXAMINATION: Temperature 98 degrees, pulse 75, respirations 16, blood pressure 194/90. Pupils are equal and round. Lungs are clear in all lung menchaca. Cardiovascular Examination: Regular rhythm and rate without murmur or S3. Abdomen is soft. Skin is warm and dry. Urine output is 8600 mL. Chest x-ray, mild worsening infiltrates. No change in NG tube. Endotracheal tube has been removed. Lungs remain expanded. Bilateral infiltrates are more prominent in the mid right lung. ASSESSMENT AND PLAN: 1. 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 The patient continues to be sedated and intubated. He had been extubated yesterday, I believe. Patient is cleaning fingers. His right side, he is not moving much. 2. Aspiration pneumonia, which seems to be improving. Continue vancomycin and Zosyn. 3. Chronic kidney disease stage 2. His renal function is stable, improving. 4. Prognosis is still guarded. Patient discussed goals of care. REVIEW OF HIS ORDERS: I do not see any change. He is on aspirin 81 mg a day, Norvasc 5 mg b.i.d., Vasotec 1.25 mg IV every 12 hours, cefepime 2 g IV q.8, Protonix 40 mg IV q.24 hours, linezolid 600 mg IV q.12. cc: Leroy Carlson MD
[2019-07-02] MEDS: PROTONIX IV SCH (13:54)
--- NOTE | 2019-07-02 14:47 | PROGRESS NOTE ---
DATE: 07/02/2019 LOCATION: ICU bed #8. SUBJECTIVE: Mr. Thomas has reported to be more alert from time to time. Daughter at the bedside reports that he has said some words that she could "almost understand." She believes he has been able to understand some of what she has said. OBJECTIVE: At the time came to his bedside, he was sleeping. he was easily waked. I could not confirm any recovery of language function on brief bedside testing this morning. He continues to move his left arm purposefully. I did not see right arm movement. The left gaze preference has resolved. He has full lateral eye movement with passive head turning. No new thoughts or new suggestions from Neurology standpoint. He has large dominant left hemisphere infarction with right hemiplegia, right hemianopia, presumed persistent global dysphasia. Prognosis for major recovery is very poor. I discussed this again with daughter at the bedside today. Thank you for asking Neurology to see Mr. Thomas. cc: MD ОЛЬГА Morillo III
--- NOTE | 2019-07-02 15:24 | INFECTIOUS DISEASE PROGRESS NO ---
DATE: 07/02/2019 PRESENT ILLNESS: The patient has bilateral pneumonia. MEDICATIONS: This is day 10 of treatment with vancomycin and day 2 of treatment with cefepime. PHYSICAL EXAMINATION: Vital Signs: Temperature is 98 degrees, pulse 69, respirations 15, blood pressure 198/77. General: This is an elderly appearing obese male. He is very lethargic. Head/eyes/ears/nose/throat: He has a nasogastric tube in place. There is no drainage from his nose or ears. Neck: No pain with passive movement of the neck. Lungs: Clear to auscultation. Cardiovascular: Heart rate is regular. Abdomen: Soft and not tender. Neurologic: Patient is lethargic. He does not follow request to move his extremities. LAB AND X-RAY: The patient's chest x-ray shows decreased pulmonary edema. Blood gases show a pH of 7.49, a PO2 of 80, and a pCO2 of 38. Creatinine is 1.2. GFR is 57. Sputum grew normal renetta. Urine cultures negative. There is no CBC for today. ASSESSMENT AND PLAN: Patient has most likely an aspiration pneumonia. I plan to continue cefepime, but I am going to discontinue vancomycin because the patient's creatinine is increasing, and the GFR is decreased. Instead, I am going to substitute Zyvox for vancomycin. COMORBIDITIES: Patient has chronic kidney disease, and also he is elderly. cc: Jeison Sahu MD
[2019-07-02] MEDS ORDERED: VANCOMYCIN 1,600 MG in NS 500 ML IV SCH (17:00)
[2019-07-03] MEDS: VASOTEC IV SCH ×2 (02:20→13:54)
[2019-07-03] MEDS: DUONEB (A & A) INH SCH ×6 (03:42→23:20)
[2019-07-03 04:38] LABS: ALLEN TEST YES; BE 3.9 mmoll (-3.0-3.0); BLOOD TYPE ARTERIAL; HCO3-(ACT) 27.8 mmoll (20.0-26.0); METHB 0.7 % (0.0-1.5); O2(CT) 24.6 mL/dL (15.0-23.0); O2HB 94.8 % (95.0-99.0); PCO2(98.6) 38 mmHg (35-45); PO2(98.6) 73 mmHg (60-100); SAMPLE BLOOD; THB 18.5 g/dL (11.5-17.4); pH(98.6) 7.47 (7.35-7.45)
[2019-07-03 04:43] LABS: MODALITY COOL AEROSOL
[2019-07-03] MEDS: LOVENOX SUBQ SCH (05:09)
[2019-07-03] MEDS: MAXIPIME 2 GM in NS 100 ML IV SCH ×3 (05:25→21:15)
[2019-07-03 05:55] LABS: AGAP 14; ALB/GLOB RATIO 0.8; ALKALINE PHOSPHATASE 87 U/L (32-122); BUN 28 mg/dL (8-22); CHLORIDE 101 mmol/L (98-107); COSMO 289; CREATININE 1.1 mg/dL (0.7-1.2); ESTIMATED GFR > 60; GLUCOSE 140 mg/dL (70-104); GOT 72 U/L (10-34); GPT 94 U/L (10-44); POTASSIUM 3.5 mmol/L (3.5-5.1); SODIUM 141 mmol/L (136-145); TCO2 26 mmol/L (25-35); TOTAL BILIRUBIN 0.44 mg/dL (0.20-1.00); TOTAL PROTEIN 6.6 g/dL (6.3-8.3)
--- NOTE | 2019-07-03 06:05 | Diag Imaging Result Doc PS360 ---
EXAM: CHEST-PORTABLE HISTORY: respiratory failure TECHNIQUE: Single view COMPARISON: 07/02/2019 FINDINGS: Nasogastric tube in good position. Lungs are well expanded. Heart is mildly prominent and there is mild pulmonary edema. No pleural effusions identified. There are calcified right hilar nodes. No consolidation. IMPRESSION: Stable chest Electronically signed by Lon Longoria 07/03/2019 6:03 AM
[2019-07-03] MEDS: HUMALOG SUBQ SCH ×4 (06:22→21:11)
--- NOTE | 2019-07-03 08:20 | PULMONOLOGY PROGRESS NOTE ---
DATE: 07/02/2019 SUBJECTIVE: The patient is awake with evaluation today. He mumbles when asked a question. OBJECTIVE: Vital Signs: Blood pressure 145/68, heart rate 93, respiratory rate 19, oxygen saturation 98%. HEENT: Pupils are equal. Lateral gaze preference not seen today. Oropharynx appears dry. Neck: Supple. Chest: Occasional rhonchi bilaterally. Cardiac: S1, S2. Abdomen: Soft. Extremities: Trace edema. IMAGING: Chest x-ray reveals decrease in pulmonary edema, mild cardiomegaly. IMPRESSION: An 88-year-old with: 1. Acute hypoxemic respiratory failure. 2. Aspiration pneumonia. 3. Large middle cerebral artery stroke. DISCUSSION: An 88-year-old with problems outlined above. According to the family, the patient would not want aggressive intervention, such as tracheostomy and feeding tube placement. However, after discussion with the Palliative Care nurse, the family is requesting a PEG tube to be placed. PLAN: 1. Continue oxygen, and wean as tolerated. 2. Continue bronchial hygiene. 3. Continue antibiotics. 4. Anticipate PEG tube, but the patient's overall prognosis is extremely poor. cc: Cirilo Mccray MD
[2019-07-03] MEDS: ASPIRIN NG SCH (09:31)
[2019-07-03] MEDS: LIPITOR PO SCH (09:31)
[2019-07-03] MEDS: NORVASC PO SCH ×2 (09:31→21:04)
[2019-07-03] MEDS: ZYVOX 600 MG/D5W 600 MG/300 ML IVPB IV SCH ×2 (09:58→21:03)
--- NOTE | 2019-07-03 10:44 | PROGRESS NOTE ---
DATE: 07/03/2019 SUBJECTIVE: Mr. Thomas is comfortable. He appears resting at the present time. He does open his eyes a little bit. When I see him, he is moving air well. OBJECTIVE: Temperature 97.9 degrees, pulse 70, respirations 15, blood pressure 193/82. Last several blood pressures 187/85, 193/81, 180/79, 187/85. Pupils are equal and round. Lungs are clear in all lung menchaca. Cardiovascular Examination: Regular rhythm and rate without murmur or S3. Abdomen is soft. Skin is warm and dry. He has a stable chest. ASSESSMENT: 1. Acute hypoxemic respiratory failure. 2. Aspiration pneumonia. 3. Large middle cerebral artery stroke. PLAN: According to family, patient would not want aggressive intervention such as tracheostomy and feeding tube placement so we are pursuing palliative care. Family is requesting a PEG tube evaluation, PEG tube placement. Continue his O2 supplement, bronchial hygiene, and the current antibiotics. Dr. Schneider has evaluated. No new suggestions. REVIEW OF CURRENT ORDERS: I do not see any change. cc: Leroy Carlson MD
[2019-07-03] MEDS: PROTONIX IV SCH (13:54)
[2019-07-03] MEDS: SODIUM CHLORIDE 0.9% INJ SCH (13:54)
--- NOTE | 2019-07-03 14:26 | INFECTIOUS DISEASE PROGRESS NO ---
DATE: 07/03/2019 PRESENT ILLNESS: Mr. Thomas is being treated for bilateral pneumonia. MEDICATIONS: Today is day 1 of Zyvox 600 mg IV every 12 hours and day 3 of cefepime 2 g IV every 8 hours. PHYSICAL EXAMINATION: Vital signs: Temperature is 98.1, pulse rate 72, respiratory rate 16, blood pressure 194/84, O2 saturation is 96% on a 30% FiO2 face mask. General: This is an elderly obese ill-appearing gentleman. He is lying in the bed currently in no acute distress. HEENT: Atraumatic, normocephalic. Unable to visualize oral mucous membranes. Conjunctivae are pink. Respiratory: Lung sounds have coarse rhonchi noted bilaterally, diminished in the bases. Cardiovascular: Heart rate and rhythm are regular, normal sinus rhythm on the monitor. Abdomen: Soft, obese, and nontender. Bowel sounds are active. There is an NG tube in place with tube feedings infusing. Neurologic: He is drowsy and lethargic but arousable. He will open his eyes and make eye contact but is not following commands or verbalizing. LABORATORY AND X-RAY: No CBC today. His pH is 7.47, pCO2 38, pO2 73, on 30% FiO2 cool aerosol face mask. Creatinine is 1.1, estimated GFR is greater than 60, total bilirubin 0.44, AST 72, ALT 94, alkaline phosphatase 87. Chest x-ray today is stable. ASSESSMENT AND PLAN: Mr. Thomas is being treated for pneumonia and also has a leukocytosis. We will recheck a CBC in the morning since we do not have one for the last couple of days. At this point, we will continue the cefepime and Zyvox ordered. These plans have been discussed and recommended by Dr. Sahu. COMORBIDITIES: For Mr. Thomas include that he is elderly with a large middle cerebral artery stroke. Dictated by DEBI Benites for Jeison Sahu MD cc: Jeison Sahu MD
--- NOTE | 2019-07-03 14:50 | GASTROENTEROLOGY CONSULTATION ---
DATE: 07/03/2019 REASON FOR CONSULT: Dysphagia. HISTORY OF PRESENT ILLNESS: Mr. Thomas, an 88-year-old male, he is in the hospital since 06/22/2019. Currently he is in the ICU unresponsive, responds to tactile stimuli. He was initially at the [facility] when his son found him unresponsive, had vomited, had a hematoma and abrasion to his right forehead. He was unconscious and unresponsive. He also had a right sided facial droop as per EMS. The patient's right side is weak. GI has been consulted for dysphagia. The patient's sputum cultures had shown he had some white blood cells, gram- negative cocci, gram-negative rods and gram-positive cocci. The patient's chest x-ray today showed stable chest. The patient's head and cervical spine CT on 06/22/2019 showed large acute left MCA distribution infarct. No evidence of acute traumatic injury involving the head. Extensive chronic appearing changes but no evidence of acute fracture or other definite acute C- spine injury. His renal ultrasound on 06/23/2019 was unremarkable. The patient's head CT on 06/24/2019 showed complete left middle cerebral artery territory infarction involving as expected with significant mass effect and some midline shift to the right. The patient is currently unresponsive and he is having an NG tube and getting his nutrition through his NG tube. He is getting Jevity 1.5 Jonathan at 50 mL/hours. PAST MEDICAL HISTORY: Hypertension, chronic kidney disease. PAST SURGICAL HISTORY: Appendectomy and cholecystectomy. FAMILY HISTORY: No significant GI malignancies. SOCIAL HISTORY: The patient is a former smoker and lives with his family. ALLERGIES: No known drug allergies. HOME MEDICATIONS: Atorvastatin calcium 40 mg daily, metoprolol succinate 50 mg daily, aspirin 81 mg daily, clonidine 0.1 mg p.o. twice a day. REVIEW OF SYSTEMS: The patient is unresponsive but he moves his hands and legs when touched. PHYSICAL EXAMINATION: Vital Signs: Temperature 98.1 degrees, pulse 72, respirations 16, blood pressure 194/84, oxygen saturation 96% on Ventimask. The patient's weight is 221 pounds, BMI is 32.8 kg/m2. General: The patient is unresponsive, reacts to touch. Unable to assess the patient HEENT: Pale conjunctivae. PERRL. Neck: Supple. Lungs: Crackles heard in the anterior menchaca. Cardiovascular: Regular rate and rhythm. Abdomen: Soft, mildly distended, nontender. Hypoactive bowel sounds heard in all 4 quadrants. Extremities: No clubbing, no cyanosis. Generalized edema in the lower extremities. Pedal pulses +1 present. LABORATORY DATA: WBC is 12.90, RBCs 4.05, hemoglobin 12.3, hematocrit 37.9, platelet count 288,000. Sodium 141, potassium 3.5, chloride 101 carbon dioxide 26, anion gap 14, BUN 28, creatinine 1.1, glucose 140, calcium 9.0, magnesium 2.1, total bilirubin 0.44, AST 72, ALT 94, alkaline phosphatase 87, albumin 3.0. IMAGING: Chest x-ray today shows stable chest. IMPRESSION: 1. Dysphagia. 2. Acute ischemic cerebrovascular accident. 3. Leukocytosis. 4. Possible aspiration pneumonia. 5. Hypertension. 6. Chronic kidney disease. PLANS: Mr. Thomas is an 88 year old female, GI has been consulted for dysphagia. The patient is currently on an NG tube and receiving his feeding of Jevity 1.5 Jonathan at 50 mL/hour. We plan to do an EGD with a PEG placement tomorrow with Dr. Ortiz. The patient is currently receiving Protonix IV 40 mg daily. He is on antibiotic Maxipime at 200 mL and Zyvox 150 mL. The patient is receiving antiemetic Zofran 4 mg every 4 hours as needed. Further plan of care will be based on the EGD findings and the PEG placement. We will continue to monitor the patient and follow the plan of PCP. This plan was discussed with Dr. Muñoz. Please call us with any further questions or concerns. Dictated by DEBI Aguilar for Viraj Muñoz MD Physician Attestation I have seen and examined the patient. I have discussed and reviewed the note by Suzette CARRERA and agree with findings and plan as documented. In brief, Mr. Hawthorne is a 88 year old man who presents to the GI service with oropharyngeal dysphagia and aspiration pneumonia in the setting of large left MCA stroke. He has been receiving NGT feeds and has failed attempted swallow evaluations. VSS. Abdomen benign without surgical scars. Will plan for EGD with PEG placement on with Dr. Ortiz. Hold TFs after MN. MTDD
--- NOTE | 2019-07-03 15:11 | PROGRESS NOTE ---
DATE: 07/03/2019 Mr. Thomas looks about the same clinically. He appeared to be sleeping. When I called his name, he opened his eyes. He followed me from the left side of the bed towards midline. He did not follow me with gaze to the right side of the bed. He has spontaneous gaze left and midline, but not to the right. There is full right gaze with passive head turning. He did not speak to me. He did not follow commands. He used his left arm purposefully. I did not see him use the right arm. I do not have any new thoughts or new suggestions from a Neurology standpoint. I agree with plans for management as outlined in the chart. Thanks for asking us to see Mr. Thomas. cc: Annette Schneider III, MD
--- NOTE | 2019-07-04 01:19 | PULMONOLOGY PROGRESS NOTE ---
DATE: 07/03/2019 SUBJECTIVE: Patient will focus on the examiner. He does not communicate. He does not follow commands. OBJECTIVE: Vital Signs: The patient has been afebrile for the last 24 hours. He has minimal movement on the right side. Blood pressure 116/74, heart rate 80, respiratory rate 19, oxygen saturation 96%. HEENT: Pupils are equal and reactive. Oropharynx appears clear. Neck: Supple. Chest: Reveals occasional rhonchi bilaterally. Cardiac: S1-S2. Abdomen: Soft. Extremities: Without edema. LABORATORIES: Chest x-ray reveals mild vascular congestion. Arterial blood gas, pH 7.47, pCO2 of 38, PO2 of 73. Sodium 141, potassium 3.5, chloride 101, bicarbonate 26, BUN 28, creatinine 1.1. IMPRESSION: An 88-year-old with: 1. Acute hypoxemic respiratory failure. 2. Large middle cerebral stroke. 3. Aspiration pneumonia. 4. Dysphagia. PLAN: 1. Continue oxygen and wean as tolerated. 2. Antibiotics per Infectious Disease. 3. Continue bronchial hygiene. 4. PEG tube plans per GI service. 5. Prognosis is poor. cc: Cirilo Mccray MD
[2019-07-04] MEDS: VASOTEC IV SCH ×2 (01:31→13:53)
[2019-07-04] MEDS: DUONEB (A & A) INH SCH ×6 (03:39→23:17)
[2019-07-04 05:04] LABS: ALLEN TEST YES; BE 5.8 mmoll (-3.0-3.0); BLOOD TYPE ARTERIAL; HCO3-(ACT) 29.4 mmoll (20.0-26.0); O2(CT) 14.7 mL/dL (15.0-23.0); O2HB 95.5 % (95.0-99.0); PCO2(98.6) 40 mmHg (35-45); PO2(98.6) 77 mmHg (60-100); SAMPLE BLOOD; THB 10.9 g/dL (11.5-17.4); pH(98.6) 7.48 (7.35-7.45)
[2019-07-04 05:06] LABS: MODALITY COOL AEROSOL
[2019-07-04] MEDS: MAXIPIME 2 GM in NS 100 ML IV SCH ×3 (05:46→22:01)
[2019-07-04 05:53] LABS: BASO# 0.06 X1000 (0.0-0.2); BASO% 0.4 % (0.0-0.8); EOS# 0.45 X1000 (0.0-0.7); HEMATOCRIT 35.4 % (42.0-52.0); HEMOGLOBIN 11.3 g/dL (14.0-18.0); IMM GRAN# 0.06 X1000 (0.0-0.04); IMM GRAN% 0.4 % (0.0-0.5); LYMPH% 13.3 % (20.5-51.1); MCH 30.5 PG (27-31); MCHC 31.9 g/dL (33-37); MCV 95.4 FL (81-99); MONO% 6.7 % (1.7-9.3); MPV 11.1 FL (7.4-10.4); NEUT# 11.42 X1000 (1.4-6.5); NEUT% 76.2 % (42.2-75.2); PLT 443 X1000 (130-400); RBC 3.71 XMIL (4.7-6.1); RDW 13.6 % (11.5-14.5); WBC 14.99 X1000 (4.8-10.8)
[2019-07-04] MEDS: HUMALOG SUBQ SCH ×4 (06:08→22:35)
[2019-07-04 06:20] LABS: AGAP 14; ALB/GLOB RATIO 0.8; ALKALINE PHOSPHATASE 81 U/L (32-122); BUN 25 mg/dL (8-22); CALCIUM 8.9 mg/dL (8.8-10.2); CHLORIDE 102 mmol/L (98-107); COSMO 288; ESTIMATED GFR > 60; GLUCOSE 106 mg/dL (70-104); GOT 77 U/L (10-34); GPT 104 U/L (10-44); POTASSIUM 3.6 mmol/L (3.5-5.1); SODIUM 142 mmol/L (136-145); TCO2 26 mmol/L (25-35); TOTAL BILIRUBIN 0.43 mg/dL (0.20-1.00); TOTAL PROTEIN 6.6 g/dL (6.3-8.3)
--- NOTE | 2019-07-04 07:08 | Diag Imaging Result Doc PS360 ---
EXAM: CHEST-PORTABLE 07/04/2019 HISTORY: respiratory failure TECHNIQUE: AP portable upright at 0504 COMMENT: There is an NG tube with its tip below the diaphragm. There is cardiomegaly with left ventricular enlargement. There is generalized interstitial opacity consistent with pulmonary edema. The patient is rotated to the left at two degree of more so than on 07/03/2019, otherwise are has been no appreciable change. IMPRESSION: Cardiomegaly and mild pulmonary edema. Electronically signed by Francisco Zheng 07/04/2019 7:06 AM
[2019-07-04] MEDS ORDERED: XYLOCAINE-MPF 2% ONE (09:19)
[2019-07-04] MEDS ORDERED: DIPRIVAN 1% ONE ×2 (09:19→11:46)
[2019-07-04] MEDS ORDERED: FENTANYL ONE (09:22)
[2019-07-04] MEDS: ASPIRIN NG SCH (10:02)
[2019-07-04] MEDS: NORVASC PO SCH ×2 (10:03→20:13)
[2019-07-04] MEDS: LIPITOR PO SCH (10:03)
[2019-07-04] MEDS ORDERED: PRECEDEX ONE (10:40)
[2019-07-04] MEDS ORDERED: XYLOCAINE 1% ONE (11:19)
--- NOTE | 2019-07-04 11:48 | ENDOSCOPY OPERATIVE NOTE ---
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 PROCEDURE PERFORMED: EGD w/ percutaneous gastrostomy tube placement MEDICATIONS: Per Anesthesia TOPICAL ANESTHETIC: none CONSENT: The patient understands the risks and benefits of the procedure and understands that these r isks include, but are not limited to: sedation, allergic reaction, infection, perforation and/or bleeding. Alternative means of evaluation and treatment include, among others: physical exam, x-rays, and/or surgical intervention. The patient elects to proceed with this endoscopic procedure. HISTORY AND PHYSICAL: 07/04/2019 DESCRIPTION OF PROCEDURE: During pre-op preparation period all mechanical and medical equipment was c hecked for proper function. Hand hygiene and appropriate measures for infection prevention was taken. After the risks, benefits and alternatives of the procedure were thoroughly explained, Informed consent was verified, confirmed and timeout was successfully executed by the treatment team. The patient was anesthetized with topical anesthesia and the [id number]-[id number] ([id number]) endoscope was introduced through the mouth and advanced to the second portion of the duoden um. The instrument was slowly withdrawn as the mucosa was fully examined. ESOPHAGUS: The mucosa of the esophagus appeared normal. Schatzki ring was noted at GEJ. STOMACH: Mild erosive gastritis (inflammation) was found in the gastric antrum. Bile was noted in t he stomach body. DUODENUM: The duodenal mucosa showed no abnormalities in the duodenal bulb, 1st part duodenum, and 2n d part duodenum. The stomach was then inflated with air, and by a combination of transillumination and manual palpatio n, the site for the gastrostomy tube placement was selected and marked on the anterior abdominal wall. The skin of the a nterior abdomen was surgically prepped and draped with sterile towels. Utilizing strict sterile technique, the selected site was then anesthetized with 1% xylocaine by inje ction into the skin and subcutaneous tissue. A 1 cm incision was made through the skin and subcutaneous tissue, and the needle/cannula assembly was then passed through the abdominal wall and through the anterior wall of the stomach, paulette ntaining visualization with the endoscope. A snare device previously placed through the instrument channel wa s then opened and placed around the cannula, the needle was removed, and the insertion wire was passed through the mateo nilo and into the stomach lumen. The snare was then loosened from the cannula, and repositioned to snare the insertion wire. The snare was then pulled up to the endoscope distal tip, and the scope was then withdrawn bringing with it the snare and insertion wire. The insertion wire was then released from the snare, and then loop-attached to the Harshil Pixsta 24 Fr gastrostomy tube. Using the "pull technique", the G-tube was then pulled into place by traction on the insertion wire a t the abdominal wall end. The G-tube insertion site was then cleansed once again, and the external bolster was placed over the tube to secure it to the abdominal wall. A sterile dressing was then applied, and the procedure term inated. Retroflexion was performed in the stomach and revealed no abnormalities. The gastroscope was then sl owly withdrawn and removed. ADVERSE EVENT: There were no complications. IMPRESSIONS: 1. The mucosa of the esophagus appeared normal; Schatzki ring at GEJ 2. Erosive gastritis (inflammation) was found in the gastric antrum 3. Bile was noted in the stomach body 4. The duodenal mucosa showed no abnormalities in the duodenal bulb, 1st part duodenum, and 2nd part duodenum RECOMMENDATIONS: Nutrition consult for Tube feeds PEG ok to use after 4 hours if no problems Aspiration precautions Abdominal binder all the time PEG tube dressing change every day for 1 week Continue PPI once daily for Gastritis for 3 months Call us with any problems, questions or concerns. REPEAT EXAM: Olivier Ortiz MD eSigned: Olivier Ortiz MD 07/04/2019 11:47 AM cc: CPT CODES: 75923 Upper gastrointestinal endoscopy including esophagus, stomach, and either the du odenum and/or jejunum as appropriate; with directed placement of percutaneous gastrostomy tube ICD CODES: 535.40 Other specified gastritis (without hemorrhage) The ICD and CPT codes recommended by this software are interpretations from the data that the [facility] staff has captured with the software. The verification of the translation of this report to the ICD and CPT co epi and modifiers is the sole responsibility of the health care institution and practicing physician where this report was generated. [employer] will not be held responsible for the validity of the ICD and CPT codes i ncluded on this report. AMA assumes no liability for data contained or not contained herein. CPT is a registered tra demark of the [employer]. PATIENT NAME: Christoph Thomas MR#: [id number]
[2019-07-04] MEDS: ZYVOX 600 MG/D5W 600 MG/300 ML IVPB IV SCH ×2 (12:23→22:01)
[2019-07-04] MEDS ORDERED: CATAPRES-TTS-2 TD SCH (13:15)
--- NOTE | 2019-07-04 13:40 | PROGRESS NOTE ---
DATE: 07/04/2019 SUBJECTIVE: Mr. Thomas is feeling better, doing better, less confusion. His daughter was at the bedside. He remains afebrile. OBJECTIVE: Temperature 98.8 degrees, pulse 75, respirations 17, blood pressure 123/77. Pupils are equal and round. Lungs are clear in all lung menchaca. Cardiovascular Examination: Regular rhythm and rate without murmur or S3. Urine output was 3200 mL. Chest x-ray from this morning, cardiomegaly and mild pulmonary edema. ASSESSMENT AND PLAN: 1. Acute hypoxemic respiratory failure. 2. Large middle cerebral artery stroke. 3. Aspiration pneumonia. 4. Dysphagia. Continue present supplementary oxygen and antibiotics, and bronchial hygiene. Percutaneous endoscopic gastrostomy tube plans per gastroenterology service. REVIEW OF ORDERS: I do not see any change. Blood pressure is still running a little bit high so I may add a Catapres patch 0.2 mg. We have Apresoline we are using IV p.r.n. cc: Leroy Carlson MD
[2019-07-04] MEDS: SODIUM CHLORIDE 0.9% INJ SCH (13:53)
[2019-07-04] MEDS: PROTONIX IV SCH (13:53)
--- NOTE | 2019-07-04 20:26 | PROGRESS NOTE ---
DATE: 07/04/2019 SUBJECTIVE: Mr. Thomas looks about the same clinically. He opened his eyes when I called his name. He looked at me to his left. His gaze was conjugate and did not cross midline. He seemed awake and alert and he seemed to attempt to find me with his vision, but he could not find me when I called him from the right side of his bed. With moderate noxious stimulation, best motor response that I could see in the right arm in slight decerebrate posture. No new thoughts or urgent suggestions from Neurology standpoint. I agree with current management. Thanks for asking us to see Mr. Thomas. cc: Annette Schneider III, MD MTDParviz
[2019-07-05] MEDS: VASOTEC IV SCH ×2 (01:03→14:32)
--- NOTE | 2019-07-05 02:43 | PULMONOLOGY PROGRESS NOTE ---
DATE: 07/04/2019 SUBJECTIVE: The patient is awake, but mumbling. He has returned from his PEG tube placement. OBJECTIVE: Vital Signs: The patient has been afebrile for the last 24 hours. Blood pressure 164/87, heart rate 94, respiratory rate 20, oxygen saturation 95% on 30% FiO2. HEENT: Pupils are equal and reactive. Oropharynx appears clear. Neck: Supple. Chest: Reveals rhonchi bilaterally. Cardiac: S1-S2. Abdomen: Soft. Extremities: Without edema. LABORATORIES: Chest x-ray reveals rotation with mild increased vascular markings and cardiomegaly. White blood count 14.99, hemoglobin 11.3, platelet count 443,000. Arterial blood gas reveals a pH 7.48, pCO2 of 40, PO2 of 77. Sodium 142, potassium 3.6, chloride 102, bicarbonate 26, BUN 25, creatinine 1.0. IMPRESSION: An 88-year-old with: 1. Acute hypoxemic respiratory failure. 2. Large middle cerebral stroke. 3. Dysphagia. 4. Aspiration pneumonia. 5. Status post PEG tube placement. PLAN: 1. Continue to wean oxygen as tolerated. We will continue humidification for now. 2. Continue bronchial hygiene. 3. Prognosis for significant improvement appears to be poor. cc: Cirilo Mccray MD
[2019-07-05] MEDS: DUONEB (A & A) INH SCH ×6 (03:29→23:45)
--- NOTE | 2019-07-05 03:32 | INFECTIOUS DISEASE PROGRESS NO ---
DATE: 07/04/2019 PRESENT ILLNESS: The patient has bilateral pneumonia most likely due to aspiration. MEDICATIONS: This is day 2 of Zyvox and day 4 of cefepime. PHYSICAL EXAMINATION: Vital Signs: Temperature is 99 degrees, pulse 108, respirations 18, blood pressure is 156/92. General: This is an ill-appearing elderly male. He is in no acute distress. Head, eyes, ears, nose, and throat: There is no drainage from the nose or ears. I could not visualize anything in his oral cavity. Neck: There was some stiffness when I tried to turn his head. Lungs: Bilateral rhonchi. Cardiovascular: Heart rate is regular. Abdomen: The abdomen is soft and nontender. The patient has a G-tube planted in the abdomen. Neurologic: The patient is lethargic. He did not respond to verbal stimuli. LABORATORY AND X-RAY: Chest x-ray shows pulmonary edema. CBC shows a white count of 14,990, hemoglobin 11.3, platelet count 443,000. Blood gases show a pH of 7.48, a PO2 of 77, and a pCO2 of 40. Creatinine is 1. GFR is greater than 60. ALT is 104. Sputum grew normal renetta. Urine culture is negative. ASSESSMENT AND PLAN: The patient I think has aspiration pneumonia which is accounting for his leukocytosis. I plan on continuing the current antibiotics, I have ordered a procalcitonin level to verify that the patient does indeed have pneumonia and not just pulmonary edema. COMORBIDITIES: The patient is elderly and he has had a large stroke. cc: Jeison Sahu MD
[2019-07-05 05:47] LABS: AGAP 14; ALB/GLOB RATIO 0.8; ALBUMIN 2.9 g/dL (3.5-5.0); ALKALINE PHOSPHATASE 81 U/L (32-122); BUN 24 mg/dL (8-22); CHLORIDE 102 mmol/L (98-107); COSMO 287; CREATININE 1.1 mg/dL (0.7-1.2); ESTIMATED GFR > 60; GLUCOSE 122 mg/dL (70-104); GOT 66 U/L (10-34); GPT 89 U/L (10-44); POTASSIUM 3.4 mmol/L (3.5-5.1); SODIUM 141 mmol/L (136-145); TCO2 25 mmol/L (25-35); TOTAL BILIRUBIN 0.44 mg/dL (0.20-1.00); TOTAL PROTEIN 6.5 g/dL (6.3-8.3)
[2019-07-05] MEDS: MAXIPIME 2 GM in NS 100 ML IV SCH ×3 (06:30→21:27)
[2019-07-05] MEDS: LOVENOX SUBQ SCH (06:45)
--- NOTE | 2019-07-05 06:53 | Diag Imaging Result Doc PS360 ---
CHEST-PORTABLE - 07/05/2019 INDICATION: respiratory failure COMPARISON: 07/04/2019 FINDINGS: Stable cardiomegaly and pulmonary vascular congestion. Stable ill-defined left perihilar infiltrate, nonspecific. The right lung is grossly clear. No pneumothorax or pleural effusion. IMPRESSION: No change from prior. Electronically signed by Luis Carlos Goodwin 07/05/2019 6:51 AM
[2019-07-05] MEDS: HUMALOG SUBQ SCH ×4 (07:16→21:28)
[2019-07-05] MEDS: NORVASC PO SCH ×2 (09:54→21:26)
[2019-07-05] MEDS: ASPIRIN NG SCH (09:54)
[2019-07-05] MEDS: LIPITOR PO SCH (09:54)
[2019-07-05] MEDS: ZYVOX 600 MG/D5W 600 MG/300 ML IVPB IV SCH ×2 (09:54→21:27)
--- NOTE | 2019-07-05 10:11 | PROGRESS NOTE ---
DATE: 07/05/2019 SUBJECTIVE: Mr. Thomas seems to be a little less lethargic. He remains afebrile. OBJECTIVE: Vital Signs: Temperature 98.1 degrees, pulse 76, respirations 23, blood pressure 162/69. Eyes: Pupils are equal and round. Lungs: Lungs are clear in all lung menchaca. Cardiovascular exam: Regular rhythm and rate without murmur or S3. : Urine output is 2600 mL. IMAGING STUDIES: Chest x-ray: No change from prior. Stable cardiomegaly. Pulmonary vascular congestion. Stable ill-defined left perihilar infiltrate. Right lung is grossly clear. No pneumothorax or pleural effusion. ASSESSMENT AND PLAN: 1. Acute hypoxemic respiratory failure. 2. Large middle cerebral stroke. 3. Dysphagia. He had a percutaneous endoscopic gastrostomy tube placed. 4. He has aspiration pneumonia. We will continue present antibiotics, and he is getting breathing treatments, albuterol and ipratropium. Norvasc 5 mg b.i.d., aspirin 81 mg a day, Lipitor 40 mg a day, clonidine patch 0.2 mg daily. Blood pressure is doing better. Vasotec 1.25 mg IV q. 12 hours, cefepime 2 g IV q. 8 hours, Protonix 40 mg IV q. 24 hours, linezolid 600 mg IV q. 12 hours. cc: Leroy Carlson MD
[2019-07-05] MEDS ORDERED: POTASSIUM CHLORIDE 20% LIQUID PO ONE (11:15)
--- NOTE | 2019-07-05 14:25 | GASTROENTEROLOGY PROGRESS NOTE ---
DATE: 07/05/2019 SUBJECTIVE: Mr. Thomas is an 88-year-old male. He is resting in bed. Family at the bedside. The patient responds to tactile stimuli, and tries to open his eyes. OBJECTIVE: Vital signs: Temperature 99.0, pulse is 92, respirations 19, blood pressure 168/78, oxygen saturation 93%. The patient is on a Ventimask at 30%. The patient's weight is 225 pounds. BMI is 33.3 kg per m sq. General: Unable to assess patient. HEENT: Pale conjunctivae. No icterus. PERRL. Neck: Supple. Coarse wheezing heard in the anterior menchaca. Cardiovascular: The patient is tachycardic. Abdomen is soft, mildly distended. PEG tube in place with the abdominal binder on it. Hypoactive bowel sounds heard in all 4 quadrants. Extremities: No clubbing. No cyanosis. Generalized edema in the lower extremities. Pedal pulse 1+ present bilaterally. DIAGNOSTIC DATA: WBC is 14.99, RBC is 3.71, hemoglobin 11.3, hematocrit 35.4, platelet count is 443. Sodium is 131, potassium 3.4, chloride 102, carbon dioxide 25, anion gap 14, BUN is 24, creatinine 1.1, glucose 122, calcium 9.0, total bilirubin is 0.44, AST is 66, ALT is 89, alkaline phosphatase is 81, albumin 2.9. The patient's chest x-ray showed cardiomegaly and mild pulmonary edema on 07/04/2019. Chest x-ray today showed no change in the prior. IMPRESSION AND PLAN: 1. Dysphagia. 2. Acute ischemic cerebrovascular accident. 3. Leukocytosis. 4. Possible aspiration pneumonia. 5. Hypertension. 6. Chronic kidney disease. 7. Dysphagia 8. Acute ischemic cerebrovascular accident. 9. Leukocytosis. 10.S/p EGD with PEG placement. Mr. Thomas is an 88-year-old male. GI is following him for his oropharyngeal dysphagia. We did an EGD yesterday with a PEG placement. Findings were that his mucosa of the esophagus was normal. There was a Schatzki's ring at the GE junction. Erosive gastritis was found in the gastric antrum. Bile was noted in the stomach body. The duodenal mucosa showed no abnormalities in the duodenal bulb, the first part of the duodenum and the second part of the duodenum. A PEG tube was placed. PEG tube is in place with abdominal binder on it. The patient is receiving Jevity 1.5 danny at 40 mL through his PEG tube. He is on GI prophylaxis Protonix IV 40 mg daily. We will continue to monitor the patient and follow the plan of care per PCP. This plan was discussed with Dr. Muñoz. Please call us with any questions. Dictated by DEBI Aguilar for Viraj Muñoz MD Physician Attestation I have seen and examined the patient. I have discussed and reviewed the note by Suzette CARRERA and agree with findings and plan as documented. In brief, Mr. Hawthorne is a 88 year old man who presents to the GI service with oropharyngeal dysphagia and aspiration pneumonia in the setting of large left MCA stroke s/p PEG placement. PEG is functioning properly. Continue routine care and defer to therapeutic sales specialist for enteral feeding. Will sign off. Please call with questions. KIMD
[2019-07-05] MEDS: PROTONIX IV SCH (14:32)
[2019-07-05] MEDS: MYCOSTATIN SUSP PO SCH ×3 (14:32→21:26)
[2019-07-05] MEDS: SODIUM CHLORIDE 0.9% INJ SCH (14:32)
--- NOTE | 2019-07-05 21:06 | INFECTIOUS DISEASE PROGRESS NO ---
DATE: 07/05/2019 PRESENT ILLNESS: Mr. Thomas is being treated for aspiration pneumonia bilaterally. He also has an oral candidiasis. MEDICATIONS: Today is day 3 of Zyvox 600 mg IV every 12 hours and day 5 of cefepime 2 g IV every 8 hours. PHYSICAL EXAMINATION: Vital Signs: Temperature is 98.1 degrees, pulse rate 76, respiratory rate 23, blood pressure 162/69, O2 saturation is 96% on a 30% cool aerosol face mask. General: This is an elderly, obese, critically ill-appearing gentleman. He is lying in the bed currently in no acute distress. HEENT: Atraumatic, normocephalic. Oral mucous membranes are pink and moist. There is a white coating to the tongue. Conjunctivae are pink. Respiratory: Lung sounds have coarse rhonchi noted bilaterally. Cardiovascular: Heart rate and rhythm are regular. Normal sinus rhythm on the monitor with occasional ectopic beats. Abdomen: Soft, obese, nontender. Bowel sounds are active. There is a PEG tube in place and patient is receiving tube feedings. Neurologic: He is drowsy and lethargic but arousable and will make eye contact. Not following commands at this time. Apparently, his right upper extremity is flaccid, however, he is able to move the other extremities with some generalized weakness. LABORATORY AND X-RAY: No CBC today. His creatinine is 1.1. Estimated GFR is greater than 60. Total bilirubin is 0.44, AST 66, ALT 89, alkaline phosphatase 81. Chest x-ray shows no change with stable ill defined left perihilar infiltrate and pulmonary vascular congestion. ASSESSMENT AND PLAN: Mr. Thomas is being treated status post large middle cerebral stroke, for an aspiration pneumonia. There is also a leukocytosis. We will recheck a CBC on Monday. The chest x-ray today is stable. We are awaiting a procalcitonin level which has been received but not resulted. For now we will continue the cefepime and Zyvox as ordered. He also has an oral candidiasis today. I have ordered his tongue and mouth to be painted with nystatin four times a day. These plans have been discussed with and recommended by Dr. Sahu. COMORBIDITIES: Include that he is elderly with chronic kidney disease, large stroke on admission and dysphagia requiring PEG tube. Dictated by DEBI Benites for Jeison Sahu MD cc: Jeison Sahu MD MTDD
--- NOTE | 2019-07-05 21:27 | PROGRESS NOTE ---
DATE: 07/05/2019 Mr. Thomas has not had significant change clinically in the last few days. Blood pressure record reviewed. On exam, he appears awake and alert. He had his eyes open, fixed his gaze on me to his left, followed me to the midline and did not follow beyond midline. When I called him from the right side of his bed, he could not move his gaze to the right side. He did not follow commands, speak or communicate in any other way. I did not see any right arm movement. IMPRESSION: Dominant left hemisphere infarction, extensive area involved demonstrated on imaging. Deficits will likely be persistent including right hemianopia, right hemiplegia, global dysphasia, dysphagia. No new suggestion from Neurology. cc: MD ОЛЬГА Morillo III
[2019-07-06] MEDS: VASOTEC IV SCH ×3 (01:46→21:15)
[2019-07-06] MEDS: DUONEB (A & A) INH SCH ×6 (03:35→23:17)
[2019-07-06] MEDS: MAXIPIME 2 GM in NS 100 ML IV SCH ×3 (05:01→21:15)
[2019-07-06] MEDS: LOVENOX SUBQ SCH (05:01)
[2019-07-06 05:55] LABS: AGAP 17; ALB/GLOB RATIO 0.6; ALBUMIN 2.9 g/dL (3.5-5.0); ALKALINE PHOSPHATASE 101 U/L (32-122); BUN 27 mg/dL (8-22); CALCIUM 9.4 mg/dL (8.8-10.2); CHLORIDE 98 mmol/L (98-107); COSMO 281; ESTIMATED GFR > 60; GLUCOSE 127 mg/dL (70-104); GOT 82 U/L (10-34); GPT 101 U/L (10-44); POTASSIUM 4.8 mmol/L (3.5-5.1); SODIUM 137 mmol/L (136-145); TCO2 22 mmol/L (25-35); TOTAL BILIRUBIN 0.42 mg/dL (0.20-1.00); TOTAL PROTEIN 7.4 g/dL (6.3-8.3)
[2019-07-06] MEDS: HUMALOG SUBQ SCH ×4 (06:06→21:16)
--- NOTE | 2019-07-06 07:08 | Diag Imaging Result Doc PS360 ---
EXAM: CHEST-PORTABLE HISTORY: respiratory failure TECHNIQUE: Single view COMPARISON: 07/05/2019 FINDINGS: Poor inspiratory effort. No cardiomegaly. There is central vascular distention. Stable left lower infiltrate and small effusion. IMPRESSION: No interval improvement Electronically signed by Lon Longoria 07/06/2019 7:06 AM
[2019-07-06] MEDS: NORVASC PO SCH ×2 (08:35→21:16)
[2019-07-06] MEDS: MYCOSTATIN SUSP PO SCH ×4 (08:35→21:15)
[2019-07-06] MEDS: LIPITOR PO SCH (08:35)
[2019-07-06] MEDS: ASPIRIN NG SCH (08:35)
[2019-07-06] MEDS: ZYVOX 600 MG/D5W 600 MG/300 ML IVPB IV SCH ×2 (10:54→21:14)
--- NOTE | 2019-07-06 12:44 | PROGRESS NOTE ---
DATE: 07/06/2019 SUBJECTIVE: Mr. Thomas is doing little better, seems a little bit stronger. The daughter was at the bedside. He remains afebrile. OBJECTIVE: Vital Signs: Temperature 98.4 degrees, pulse 89, respirations 18, blood pressure 176/81. Eyes: Pupils are equal and round. Lungs: Lungs are clear in all lung menchaca. Cardiovascular exam: Regular rhythm and rate without murmur or S3. : Urine output was 3400 mL. Blood sugar 118, 103, 138. X-RAYS: Chest x-ray: Poor inspiratory effort, no cardiomegaly. There is central venous distention. Stable left lower lobe infiltrate and small effusion. No interval improvement. ASSESSMENT: 1. Patient with acute hypoxemic respiratory failure. 2. Large middle cerebral stroke. 3. Dysphagia. 4. History of aspiration pneumonia. PLAN: So continue present measures. He is on cefepime 2 g IV q. 8 hours, linezolid 600 mg IV q. 12 hours. We looking to go to LTAC on Monday. This reviewed his lab from the . Electrolytes from today: Sodium 137, potassium 4.8, chloride 98. BUN 27, creatinine 1.0. Blood sugar 120, 127, 138 and 133. cc: Leroy Carlson MD
[2019-07-06] MEDS: PROTONIX IV SCH (14:38)
[2019-07-06] MEDS: SODIUM CHLORIDE 0.9% INJ SCH (14:38)
[2019-07-07] MEDS: DUONEB (A & A) INH SCH ×6 (02:56→23:01)
[2019-07-07] MEDS: LOVENOX SUBQ SCH (05:00)
[2019-07-07] MEDS: MAXIPIME 2 GM in NS 100 ML IV SCH ×3 (05:00→21:07)
[2019-07-07] MEDS: VASOTEC IV SCH ×3 (05:00→21:07)
[2019-07-07] MEDS: HUMALOG SUBQ SCH ×4 (06:10→20:05)
[2019-07-07 07:04] LABS: AGAP 16; ALB/GLOB RATIO 0.9; ALBUMIN 3.1 g/dL (3.5-5.0); ALKALINE PHOSPHATASE 85 U/L (32-122); BUN 27 mg/dL (8-22); CALCIUM 9.1 mg/dL (8.8-10.2); CHLORIDE 100 mmol/L (98-107); COSMO 286; CREATININE 1.1 mg/dL (0.7-1.2); ESTIMATED GFR > 60; GLUCOSE 123 mg/dL (70-104); GOT 62 U/L (10-34); GPT 82 U/L (10-44); POTASSIUM 3.9 mmol/L (3.5-5.1); SODIUM 140 mmol/L (136-145); TCO2 24 mmol/L (25-35); TOTAL PROTEIN 6.6 g/dL (6.3-8.3)
--- NOTE | 2019-07-07 08:11 | Diag Imaging Result Doc PS360 ---
EXAM: CHEST-PORTABLE - 07/07/2019 HISTORY: respiratory failure TECHNIQUE: Portable chest COMPARISON: 07/06/2019 FINDINGS: Heart size appears within normal limits. There is been interval decrease in infiltrate at left base. There is persistent small left pleural effusion. The right lung appears essentially clear. There is no evidence of pneumothorax. IMPRESSION: Decrease in infiltrate left base. Electronically signed by Jose Francisco Carrillo 07/07/2019 8:09 AM
[2019-07-07] MEDS: NORVASC PO SCH ×2 (09:10→20:05)
[2019-07-07] MEDS: LIPITOR PO SCH (09:10)
[2019-07-07] MEDS: ASPIRIN NG SCH (09:10)
[2019-07-07] MEDS: ZYVOX 600 MG/D5W 600 MG/300 ML IVPB IV SCH ×2 (09:10→21:07)
[2019-07-07] MEDS: MYCOSTATIN SUSP PO SCH ×4 (09:10→20:05)
[2019-07-07] MEDS: PROTONIX IV SCH (14:01)
[2019-07-07] MEDS: SODIUM CHLORIDE 0.9% INJ SCH (14:02)
--- NOTE | 2019-07-07 15:34 | PROGRESS NOTE ---
DATE: 07/07/2019 Mr. Thomas is about the same. He seems to be a little stronger. OBJECTIVE: Vitals: He remains afebrile, temperature 98.9 degrees, pulse 70, respirations 15, blood pressure 157/81. Eyes: Pupils are equal and round. Lungs: Clear in all lung menchaca. Cardiovascular: Regular rate without murmur or S3. Urine output was 3200 mL. Chest x-ray from today: Decreased infiltrate in the left base. ASSESSMENT AND PLAN: The patient presented with acute hypoxemic respiratory failure, had a large middle cerebral stroke and a history of aspiration pneumonia. Pneumonia seems to be improving. Continue present antibiotics of cefepime 2 g IV q.8 hours, linezolid 600 mg IV q.12 hours. Hoping to go to LTAC tomorrow. He has been approved. Review of his orders, I do not see any change. Review of his lab from the 5th, no change. Electrolytes from today: Creatinine is 1.1. Blood sugars 127, 123, 146 and 140. cc: Leroy Carlson MD
--- NOTE | 2019-07-07 15:51 | INFECTIOUS DISEASE PROGRESS NO ---
DATE: 07/07/2019 PRESENT ILLNESS: The patient is being treated for aspiration pneumonia. MEDICATIONS: This is day 7 of cefepime and day 5 of Zyvox. PHYSICAL EXAMINATION: Vital Signs: Temperature is 99 degrees, pulse 71, respirations 20. Blood pressure is 138/64. General: This is an ill-appearing, obese, elderly male. He is in no acute distress. Head/eyes/ears/nose/throat: There is no drainage coming from the nose or ears. I cannot get a good view of the patient's oral cavity. Neck: No stiffness or pain with passive movement. Respiratory: There are bilateral rhonchi. Cardiovascular: Heart rate is regular. Abdomen: Soft and nontender. A PEG tube is in place. The site is not bleeding or purulent. Neurologic: Today the patient is very lethargic. He does open his eyes to verbal stimuli but does not move his extremities to request. LAB AND X-RAY: Chest x-ray shows decrease in the left lower lobe infiltrate. There is no CBC for today. Creatinine is 1.1. GFR is greater than 60. ASSESSMENT AND PLAN: The patient is being treated for aspiration pneumonia. I plan to continue with his current antibiotics. I have gone ahead and ordered a CBC for tomorrow. COMORBIDITIES: The patient is elderly, and he has chronic kidney disease. He has dysphagia. He had a large stroke. The patient has a PEG tube now. cc: Jeison Sahu MD
--- NOTE | 2019-07-07 18:51 | GASTROENTEROLOGY PROGRESS NOTE ---
DATE: 07/06/2019 SUBJECTIVE: Mr. Thomas is an 88-year-old male, resting in bed. Family at the bedside. The patient responds to tactile stimuli. OBJECTIVE: Vital signs: Temperature 98.4 degrees, pulse 92, respirations 20, blood pressure 190/88, oxygen saturation 94% on Ventimask. General: Unable to assess the patient. HEENT: Pale conjunctivae. No icterus. PERRL. Neck: Is supple. Lungs: Coarse wheezing heard in the anterior menchaca. Cardiovascular: The patient is tachycardic. Abdomen: Soft, mildly distended. PEG tube in place with abdominal binder on it. Hypoactive bowel sounds heard in all 4 quadrants. Extremities: No clubbing no cyanosis. Generalized edema in the lower extremities. Pedal pulses 1+ present bilaterally. Neurological: Unable to assess the patient. LABORATORY DATA: His hematology is from 07/04. WBC 14.99, RBC 3.71, hemoglobin 11.3, hematocrit 35.4, platelet count 443,000. Sodium 137, potassium 4.8, chloride 9.98, carbon dioxide 22, anion gap 17, BUN 27, creatinine 1.0, glucose 127, calcium 9.4, magnesium 2.2, total bilirubin 0.42, AST 82, ALT 101, alkaline phos 101, albumin 2.9. Chest x-ray showed no interval improvement. IMPRESSION AND PLAN: 1. Dysphagia. 2. Acute ischemic cerebrovascular accident. 3. Leukocytosis. 4. Possible aspiration pneumonia. 5. Hypertension. 6. Chronic kidney disease. 7. S/p EGD with PEG tube placement. PLAN: Mr. Thomas is an 88-year-old male. GI is following him for his oropharyngeal dysphagia. An EGD was done with a PEG tube placement. The patient is receiving tube feeding Jevity 1.5 at 50 mL/hour. He is tolerating his feeding well. PEG tube is in place with an abdominal binder on it. He is receiving gastrointestinal prophylaxis, Protonix 40 mg IV. The patient is receiving antibiotic of Zyvox. The patient had 1 bowel movement today. We will continue to monitor the patient and follow the plan of care per PCP. This plan was discussed with Dr. Jones. Please call us for any further questions or concerns. Dictated by DEBI Aguilar for Godwin Jones MD cc: Godwin Jones MD [facility]
--- NOTE | 2019-07-07 23:20 | GASTROENTEROLOGY PROGRESS NOTE ---
DATE: 07/07/2019 SUBJECTIVE: Mr. Thomas is an 88-year-old male resting in bed. Family at the bedside. Patient is responding only to tactile stimuli. OBJECTIVE: Vital Signs: 98.9 degrees, pulse 77, respirations 16, blood pressure 151/79, oxygen saturation 95% on Ventimask. Patient's weight is 218, BMI 32.3 kg/m2. General: Unable to assess the patient. HEENT: Pale conjunctivae. No icterus. PERRL. Neck: Supple. Lungs: Coarse wheezing heard in the anterior menchaca. Cardiovascular: Regular rate and rhythm. Abdomen: Soft, mildly distended. PEG tube in place with abdominal binder on it. Hypoactive bowel sounds heard in all 4 quadrants. Extremities: No clubbing. No cyanosis. Generalized edema in the lower extremities. Pedal pulses 1+ present bilaterally. Neurologic: Unable to assess the patient. LABORATORIES: Chemistry: Sodium 140, potassium 3.9, chloride 100, carbon dioxide 24, anion gap 16, BUN 27, creatinine 1.1, glucose is 123, calcium 9.1, magnesium 2.1, total bilirubin 0.30, AST 62, ALT 82, alkaline phosphatase 85, albumin 3.1. Chest x-ray showed decrease in infiltrate left base. IMPRESSION: 1. Dysphagia. 2. Acute ischemic cerebrovascular accident. 3. Leukocytosis. 4. Possible aspiration pneumonia. 5. Hypertension. 6. Chronic kidney disease. 7. S/P EGD with PEG tube placement. PLAN: Mr. Thomas is an 88-year-old male. GI is following him for his oropharyngeal dysphagia. EGD was done with PEG tube placement. The patient is receiving tube feeding Jevity 1.5 Jonathan at 50 mL/h. He is tolerating his feedings well. PEG tube is in place with an abdominal binder on it. Patient is on a GI prophylaxis, Protonix 40 mg IV. He is also receiving antibiotic, Zyvox. The patient has been having bowel movements and so far he has had 2 bowel movements today. Patient might be discharge to LTC on Monday. We will continue to monitor the patient and follow the plan of care per PCP. This plan was discussed with Dr. Jones. Please call us for any further questions or concerns. Dictated by DEBI Aguilar for Godwin Jones MD cc: MD KIM MoniqueD
[2019-07-08] MEDS: DUONEB (A & A) INH SCH ×3 (03:02→11:25)
[2019-07-08] MEDS: MAXIPIME 2 GM in NS 100 ML IV SCH (05:05)
[2019-07-08] MEDS: LOVENOX SUBQ SCH (05:05)
[2019-07-08] MEDS: VASOTEC IV SCH (05:05)
[2019-07-08] MEDS: HUMALOG SUBQ SCH ×2 (06:06→11:18)
[2019-07-08 06:26] LABS: BASO# 0.05 X1000 (0.0-0.2); BASO% 0.5 % (0.0-0.8); EOS# 0.47 X1000 (0.0-0.7); EOS% 4.9 % (0.0-10.0); HEMATOCRIT 37.1 % (42.0-52.0); HEMOGLOBIN 11.6 g/dL (14.0-18.0); IMM GRAN# 0.04 X1000 (0.0-0.04); IMM GRAN% 0.4 % (0.0-0.5); LYMPH# 1.76 X1000 (1.2-3.4); LYMPH% 18.3 % (20.5-51.1); MCH 30.2 PG (27-31); MCHC 31.3 g/dL (33-37); MCV 96.6 FL (81-99); MONO# 0.75 X1000 (0.11-0.59); MONO% 7.8 % (1.7-9.3); MPV 10.5 FL (7.4-10.4); NEUT# 6.56 X1000 (1.4-6.5); NEUT% 68.1 % (42.2-75.2); PLT 453 X1000 (130-400); RBC 3.84 XMIL (4.7-6.1); RDW 13.3 % (11.5-14.5); WBC 9.63 X1000 (4.8-10.8)
--- NOTE | 2019-07-08 06:28 | Diag Imaging Result Doc PS360 ---
EXAM: CHEST-PORTABLE HISTORY: respiratory failure TECHNIQUE: Single view COMPARISON: 07/07/2019 FINDINGS: The lungs are well expanded. The heart remains mildly enlarged. Mild central vascular distention. No consolidation. No pleural effusions identified. Interstitial markings in the left base are slightly less prominent. IMPRESSION: Mild interval improvement Electronically signed by Lon Longoria 07/08/2019 6:26 AM
[2019-07-08 06:45] LABS: AGAP 6; ALB/GLOB RATIO 0.7; ALBUMIN 2.9 g/dL (3.5-5.0); ALKALINE PHOSPHATASE 87 U/L (32-122); BUN 29 mg/dL (8-22); CALCIUM 9.1 mg/dL (8.8-10.2); CHLORIDE 101 mmol/L (98-107); COSMO 285; ESTIMATED GFR > 60; GLUCOSE 127 mg/dL (70-104); GOT 64 U/L (10-34); GPT 92 U/L (10-44); POTASSIUM 4.1 mmol/L (3.5-5.1); SODIUM 139 mmol/L (136-145); TCO2 32 mmol/L (25-35); TOTAL BILIRUBIN 0.27 mg/dL (0.20-1.00); TOTAL PROTEIN 6.8 g/dL (6.3-8.3)
[2019-07-08] MEDS: ASPIRIN NG SCH (08:34)
[2019-07-08] MEDS: MYCOSTATIN SUSP PO SCH ×2 (08:34→12:37)
[2019-07-08] MEDS: LIPITOR PO SCH (08:35)
[2019-07-08] MEDS: NORVASC PO SCH (08:35)
--- NOTE | 2019-07-08 08:58 | INFECTIOUS DISEASE PROGRESS NO ---
DATE: 07/08/2019 PRESENT ILLNESS: The patient is being treated for aspiration pneumonia. The patient also has oral candidiasis. MEDICATIONS: This is day 8 for cefepime, and day 6 for Zyvox. The patient also is receiving nystatin, which is to be painted into his mouth as best as possible since he does not take medication or food by mouth. PHYSICAL EXAMINATION: Vital Signs: Temperature is 98.4 degrees, pulse 79, respirations 19, blood pressure is 161/81. General: This is an ill-appearing, obese, elderly male. He is in no acute distress. HEENT: I did not see any drainage from his nose or ears. I could not get a good view of his oral cavity. Neck: The patient did not seem to have any pain when I passively moved the patient's neck. Lungs: Bilateral rhonchi. Cardiovascular: Heart rate is regular. Abdomen: Soft and nontender. The patient recently had a PEG tube placed. The site is not purulent or bleeding. Neurologic: The patient is very lethargic. He did open his eyes when I talked, but he did not move his extremities when I asked him. IMAGING AND LABORATORY DATA: Chest x-ray shows decrease in the left lower lobe interstitial markings. There is vascular congestion and no consolidation. The patient's sputum grew normal renetta. Urine culture is negative. Procalcitonin was 0.12. Creatinine is 1. GFR is greater than 60. CBC shows a white count of 9630, hemoglobin 11.6, and platelet count 453,000. ASSESSMENT AND PLAN: The patient most likely will be moved to an long-term acute care today. I put in the orders that I would suggest treating the patient for 5 more days, and then stopping the cefepime, Zyvox, and nystatin. COMORBIDITIES: The patient is elderly. He has chronic kidney disease and dysphagia. He recently had a large stroke. He has a PEG tube now. cc: Jeison Sahu MD
--- NOTE | 2019-07-08 09:05 | Carotid Study ---
DATE: 06/22/2019 PROCEDURE: Bilateral duple and color flow imaging of the carotid arteries performed using the [employer] Vivid E9 ultrasound system with a 9 L-D transducer. REFERRING PROVIDER: DEBI Hatfield. SUPERVISOR METAL FABRICATING: Parul Remy RVT. INDICATIONS: Stroke. FINDINGS: The velocities in cm/sec of both carotid systems were reviewed. The right ICA/CCA ratio 0.84, corresponding to a percent stenosis of 0 to 39 percent. The left ICA/CCA ratio was 0 corresponding to a percent stenosis of 100%. INTERPRETATION: The left internal carotid artery is occluded. There is only mild atherosclerotic disease involving the right carotid system without evidence of a hemodynamically significant lesion on that side. cc: MD Umm Garrett CRNP
[2019-07-08] MEDS: ZYVOX 600 MG/D5W 600 MG/300 ML IVPB IV SCH (09:56)
--- NOTE | 2019-07-08 11:09 | DISCHARGE SUMMARY ---
ADMISSION DATE: 06/22/2019 DISCHARGE DATE: 07/08/2019 HOSPITAL COURSE: This is an 88-year-old and has no primary care physician. He was found on the floor about 4 p.m. the morning of 06/22/2019 unresponsive by his son. The patient vomited, had a hematoma and abrasion on his right forehead. This is an 88-year-old male presented to [facility] ER via EMS after he was found unconscious and unresponsive on the floor in his bedroom around 4 a.m. in the morning. He had vomited and noted to have an abrasion and hematoma in the right forehead. Last seen around 2 a.m. in the morning. He is noted to have a facial droop on the right en route per EMS. He was aphasic responded minimally to verbal stimuli. He would squeeze the left hand, but was flaccid on the right. Emergency room CT of the head showed acute ischemic event involving the entire left MCA. Stroke team in [place] was paged at 5:50 a.[address]. I spoke with Dr. Smith. He had recommendations of no intervention, so I need to transfer. A CT scan was abnormal. Admitted to intensive care. PAST MEDICAL HISTORY: Hypertension, chronic kidney disease. PAST SURGICAL HISTORY: Appendectomy and cholecystectomy. ADMISSION DIAGNOSES: 1. Acute ischemic cerebral accident. 2. Leukocytosis. 3. Possible aspiration pneumonia. 4. Hypertension. 5. Chronic kidney disease, history of that. Admitted to the hospital. CT of the head and spine showed large acute left MCA distribution infarct, extensive chronic appearing changes detailed, but no evidence of acute fracture or no definite sign of C-spine injury. Chest x-ray: Low lung volumes, but no definite acute pathology on the . Had carotid Doppler done on 06/22. Left internal carotid artery was occluded. There was only mild atherosclerotic disease involving the right carotid system without evidence of hemodynamically significant lesion on that side. Echocardiogram done: Probably normal left ventricular size, ejection fraction around 60%. No significant valvular dysfunction. Right heart structure is difficult to visualize, probably normal aorta size. Pulmonary consult was obtained. [place] large stroke involving left middle cerebral artery, not moving his right much, upper and lower extremity. Acute hypoxemic respiratory failure with fevers, so was intubated and follow-up chest x-ray 06/22: Interval placement of ET tube and J-tube noted. Renal ultrasound done 06/23: Unremarkable renal ultrasound. Head CT repeated on 06/24 without contrast: Complete left middle cerebral artery territory infarction involving as expected with significant mass effect and some midline shift to the right. Dr. Schneider saw him on 06/24 with Neurology noted again a large ischemic dominant left hemisphere infarction with right hemiparesis, likely right hemianopsia, likely global dysphasia. We had to wean him off the ventilator and followup chest x-ray on 06/28 worsening infiltrates. There is no change in his NG tube at that time, but progressed. Infectious Disease was asked to see Dr. Sahu. The patient denied continued fever, clot aspiration, left upper and lower lobe pneumonia and was already on excellent antibiotic coverage. He showed improvement, able to extubate. Dr. Schneider noted he would open his eyes when he called out his name. His gaze was conjugate, but did not cross midline. Seems awake and alert. [place] his chest x-ray repeated on 07/08, mild interval improvement. Mild central vascular distention, but improving clinically. So, felt he is candidate for LTAC. We tried to get him ready to go to LTAC. DISCHARGE MEDICATION: 1. He is getting Ofirmev 1000 mg q. 6 hours p.r.n. 2. Getting DuoNeb treatments. 3. He is on Norvasc 5 mg twice a day. 4. Aspirin 81 mg daily. 5. Lipitor 40 mg a day. 6. Cefepime 2 g IV q. 8 hours. 7. Clonidine patch 0.2 mg patch q. week. 8. He gets Vasotec 1.25 mg IV q. 8 hours. 9. Lovenox 40 mg subcutaneous daily. 10. Apresoline 10 mg IV q. 4 hours p.r.n. 11. Labetalol 20 mg IV q. 4 hours p.r.n. 12. Zyvox 600 mg IV q. 12 hours. 13. Nystatin suspension 5 mL 4 times a day. 14. Zofran 4 mg IV q. 4 hours. 15. Protonix 40 mg q. 24 hours. cc: Leroy Carlson MD
--- NOTE | 2019-07-08 12:27 | GASTROENTEROLOGY PROGRESS NOTE ---
DATE: 07/08/2019 SUBJECTIVE: Mr. Thomas is an 88-year-old, male resting in bed with family at the bedside. The patient responds only to the tactile stimuli. OBJECTIVE: Vital Signs: Temperature 97.7 degrees, pulse 83, respirations 18, blood pressure 174/88, oxygen saturation 95% on a Ventimask. The patient's weight is 216 pounds. BMI is 31.9 kg/m2. General: Unable to assess the patient. HEENT: Pale conjunctivae. No icterus. PERRL. Neck: Supple. Lungs: Coarse wheezing heard in the anterior [place]. Cardiovascular: Regular rate and rhythm. Abdomen: Soft, nontender, nondistended. PEG tube in place. Abdominal binder on it. Active bowel sounds heard in all 4 quadrants. Extremities: No clubbing, no cyanosis. Generalized edema in the lower extremities. Pedal pulses 1+ present bilaterally. Neurological: Unable to assess to the patient. Labs: WBCs are 9.63, RBCs 3.84, hemoglobin 11.6, hematocrit 37.1, platelet count is 453,000. Sodium 139, potassium 4.1, chloride 101, carbon dioxide 32, anion gap 6, BUN 29, creatinine 1.0, glucose 127, calcium 9.1, magnesium 2.0. Total bilirubin 0.27, AST 64, ALT 92, alkaline phosphatase 87, albumin 2.9. Chest x-ray showed mild interval improvement. IMPRESSION: 1. Dysphagia. 2. Acute ischemic cerebrovascular accident. 3. Leukocytosis. 4. Possible aspiration pneumonia. 5. Hypertension. 6. Chronic kidney disease. 7. S/p PEG tube placement PLAN: Mr. Thomas is an 88-year-old, male, GI is following him for his oropharyngeal dysphagia. We have done an EGD and placed a PEG tube. He is receiving his tube feedings through the PEG tube, Jevity 1.5 danny at 50 mL per hour. Patient is tolerating the feeding well. PEG tube is in place with abdominal binder on it. The patient is receiving GI prophylaxis 40 mg IV and he is on antibiotics, Maxipime and Zyvox. The patient has a discharge order to go to the long- term care facility. We will continue to monitor the patient and follow the plan of care per PCP. This plan was discussed with Dr. Ortiz. Please call us for any further questions or concerns. Dictated by DEBI Aguilar for Olivier Ortiz MD cc: Olivier Ortiz MD I have seen and examined the patient myself and I agree with the above plan of care. Discussed the above with the patient's family at bedside and all questions were answered. ОЛЬГА
[2019-07-08 13:15] VITALS: BP 150/82
--- NOTE | 2019-07-09 07:46 | PULMONOLOGY PROGRESS NOTE ---
DATE: 07/08/2019 SUBJECTIVE: The patient is awake and alert. He has some audible rhonchi which he has difficulty clearing. Family is at the bedside. OBJECTIVE: Vital Signs: Blood pressure 161/75, heart rate 89, respiratory rate 27, oxygen saturation 97% on 28% FiO2. HEENT: Pupils are equal and reactive. Oropharynx appears clear. Neck is supple. Chest reveals rhonchi bilaterally. Cardiac Examination: S1, S2. Abdomen is soft. Extremities reveal trace edema. Laboratories: Sodium 139, potassium 4.1, chloride 101, bicarbonate 32, BUN 29, creatinine 1.0. Chest x-ray reveals slight decrease in central vascular distention. IMPRESSION: An 88-year-old with: 1. Large middle cerebral stroke. 2. Acute hypoxemic respiratory failure. 3. Dysphagia, status post percutaneous endoscopic gastrostomy tube placement. 4. Aspiration pneumonia with continued improvement. RECOMMENDATIONS: 1. Continue bronchial hygiene. 2. Continue to wean oxygen as tolerated. 3. Continue PEG tube use. 4. Anticipate discharge to the LTAC unit today. cc: Cirilo Mccray MD
== END 2019-07-08 13:41 | DRG 64 ==
LOC: P.ED 04:58 → 2N 07:22 → SUATTDRO 07:22 → ICU 08:26
PROVIDERS: ATTEND Emergency Medicine